=== PATIENT | male | born 1995 | race Caucasian/White ===

== ENCOUNTER 2019-05-11 05:48 | Outpatient (CLI) | payer BC ==
[~2019-05-11] VITALS: Ht 182.9 cm; Wt 104.3 kg
[2019-05-11] MEDS ORDERED: RANI-515 PO (13:07)
== END 2019-05-11 13:08 | disposition home or self-care (01) ==
LOC: PREOP 05:48
PROVIDERS: ATTEND Otolaryngology Otolaryngology/Facial Plastic Surgery
DX: Z01.818 Encounter for other preprocedural examination (principal)

== ENCOUNTER 2019-05-21 07:44 | Day surgery (SDC) | payer BC ==
[2019-05-21] VITALS (15 sets, daily range): BP systolic 105–149; BP diastolic 63–104
[~2019-05-21] VITALS: Ht 182.9 cm; Wt 105.2 kg
[~2019-05-21 07:44] MED LIST: RANI-515 PO
--- OUTSIDE RECORDS SUMMARY | 2019-05-21 08:04 | XMS REPORT | Encounter Summary ---
Author Author [facility] Organization [facility] Address Unknown Phone Unavailable Care Team Providers Care National Coverage Specialist Name Role Phone Ventura Gibbs PCP Reason for Visit * Reason Comments General Question Encounter Details Care Team Description [place] [address] [address] Med Office Bld [address]PE [address] [place], [place] [address] General Question 04/13/2019 Telephone [place] [employer] [facility] [address] [place], [place] [address] Social History Date Tobacco Use Types Packs/Day Years Used Never Smoker Smokeless Tobacco: Never Used Drinks/Week oz/Week Comments Alcohol Use social Yes Alcohol Habits Answer Date Recorded How often do you have a drink containing alcohol? Never 12/24/2018 How many drinks containing alcohol do you have on Not asked a typical day when you are drinking? How often do you have six or more drinks on one Not asked occasion? Sex Assigned at Date Recorded Not on file Industry Job Start Date Occupation Not on file Not on file Not on file Travel End Travel History Travel Start No recent travel history available. documented as of this encounter Functional Status Date of Assessment Functional Status Response 04/01/2019 Does the patient have a hearing impairment: No 04/01/2019 Does the patient have a visual impairment: No 04/01/2019 Does the patient have impaired ambulation: Yes 04/01/2019 Does the patient have an activity of daily living No (ADL) impairment: 04/01/2019 Does the patient have an instrumental activity of No daily living (IADL) impairment: Date of Assessment Cognitive Status Response 04/01/2019 Does the patient have a cognitive impairment: No documented as of this encounter Miscellaneous Notes * Telephone Encounter - Jesus Chance - 04/13/2019 12:41 PM CDT Returned call to Sanford. He asked how much he could lift transferring weight from rack to bench when doing upper extremity exercise/workouts. Per Chi Aquino PA-C it should be a significantly lower weight storey he is typically lifting. Chalo garcia also indicated no lower extremity exercise until cleared by Luz Maria. Also be seated for exercises so not load bearing. Sanford indicated he has been using 25-30 pound dumbbells transferring them to sea mell bench to do upper extremity exercise. He did report before surgery he was be nching 275#. So I indicated as long as he avoids long carrying of 25-30 pound du mbbells he should be fine to transfer them to seated weight bench to do his uppe r extremity exercises. No lower extremity until cleared by Luz Maria. Pt agreed and all questions answered. documented in this encounter Plan of Treatment Not on filedocumented as of this encounter Visit Diagnoses Not on filedocumented in this encounter
--- OUTSIDE RECORDS SUMMARY | 2019-05-21 08:04 | XMS REPORT | Encounter Summary ---
Author Author [facility] Organization [facility] Address Unknown Phone Unavailable Care Team Providers Care Clarifier Operator Name Role Phone ParasVentura mccauley PCP Reason for Visit * Reason Comments Post-op Encounter Details Care Team Description Date Type Department Chi Aquino PA-C [address] [facility] [address] [address] [place] [address] [phone] S/P hip arthroscopy (Primary Dx) 04/29/2019 Office Visit [facility] [address] [employer] [place], [place] [id number] Social History Date Tobacco Use Types Packs/Day [...] history available. documented as of this encounter Last Filed Vital Signs Reading Time Taken Comments Vital Sign 122/83 04/29/2019 11:13 AM CDT Blood Pressure 62 04/29/2019 11:13 AM CDT Pulse - - Temperature 16 04/29/2019 11:13 AM CDT Respiratory Rate 99% 04/29/2019 11:13 AM CDT Oxygen Saturation - - Inhaled Oxygen Concentration 104.3 kg (230 lb) 04/29/2019 11:13 AM CDT Weight 182.9 cm (6') 04/29/2019 11:13 AM CDT Height 31.19 04/29/2019 11:13 AM CDT Body Mass Index documented in this encounter Functional Status Date of Assessment [...] impairment: No documented as of this encounter Patient Instructions * Patient Instructions* Cate Young RN - 04/29/2019 11:00 AM CDT MD Chi Fox PA-C [facility] | | [address] [place] [address] 200 | [place] [address] Cate Young RN | Clinical Nurse Coordinator Jamison Valadez ATC | Clinical Clear Coat Sprayer documented in this encounter Progress Notes * Chi Aquino PA-C - 04/29/2019 11:00 AM CDT CC: Status post Right hip arthroscopy and labral repair 03/17/19 HPI: Sanford Rodriguezroxierocio presents today for routine 6 week post-operative fo llow up of his hip arthroscopy. He is doing well with minimal complaints. He f eels 80% improved and rates his pain a 1/10. [facility] He [facility] school [facility]. No issues since last being seen. No falls. He has been using naproxen. Physical Exam: Right Hip Exam: Incisions healed. Skin intact. No erythema or induration. Normal gait ROM: Flexion: 90 Flexion ER: 30 Flexion IR: 20 Special tests: KARAN: negative FADIR: negative SCOUR: negative. Stintchfiel d testing is negative. Strength is good. Sensation is intact to light touch. Impression: 23 y.o. male 6-weeks status post the above surgery doing well. Plan: He may progress through the PT protocol as planned (standard hip arthroscopy). We discussed postoperative precautions moving forward. Had a long discussion in regards to restrictions. I will have him see in 6 weeks. All of his q uestions were answered today. He was comfortable with the plan at the end of e visit. BP 122/83 (BP Source: Arm, Left Upper, Patient Position: Sitting) | Pulse 62 | Resp 16 | Ht 182.9 cm (72") | Wt 104.3 kg (230 lb) | SpO2 99% | BMI 31.19 k g/m No orders of the defined types were placed in this encounter. Current Medications: amino acids (BCAA PO) Take 1 tablet by mouth daily. APPLE CIDER VINEGAR PO Take 1 tablet by mouth daily. biotin 1 mg cap Take 1 capsule by mouth daily. flaxseed oil (OMEGA 3 PO) Take 1 capsule by mouth daily. levocarnitine (L-CARNITINE PO) Take 1 capsule by mouth daily. loratadine (CLARITIN) 10 mg tablet Take 10 mg by mouth every morning. meloxicam (MOBIC) 7.5 mg tablet Take 7.5 mg by mouth daily as needed. Multivitamins with Fluoride (MULTI-VITAMIN PO) Take 1 tablet by mouth daily. naproxen (NAPROSYN) 500 mg tablet Take one tablet by mouth twice daily with meals. Take for 4 weeks after surgery. Do not start until after surgery has bee n completed. ranitidine(+) (ZANTAC) 150 mg tablet Take 150 mg by mouth daily. tretinoin (RETIN-A) 0.1 % topical cream Apply topically to affected area da frederick. No Known Allergies documented in this encounter Plan of Treatment Not on filedocumented as of this encounter Visit Diagnoses Diagnosis S/P hip arthroscopy - Primary documented in this encounter
--- OUTSIDE RECORDS SUMMARY | 2019-05-21 08:04 | XMS REPORT | Encounter Summary ---
Author Author [facility] Organization [facility] Address Unknown Phone Unavailable Care Team Providers Care Imaging Manager Name Role Phone Ventura Gibbs PCP Reason for Visit * Auth/Cert Referred By Contact Referred To Contact Status Reason Specialty Diagnoses / Procedures Diagnoses Femoroacetabular impingement of right hip Acetabular labrum tear, right, subsequent encounter Femoroacetabular impingement of right hip [M25.851] Acetabular labrum tear, right, subsequent encounter [S73.191D] P rocedures AL ARTHROSCOPY HIP W/FEMOROPLASTY AL ARTHROSCOPY HIP W/LABRAL REPAIR ARTHROSCOPY HIP, FEMOROPLASTY ARTHROSCOPY HIP WITH LABRAL REPAIR - SURGICAL Encounter Details Care Team Description [place] [address] [facility] [address] [place] [address] [phone] 03/17/2019 [facility] [address] [facility] [address] [place] [address] Social History Date Tobacco Use Types Packs/Day [...] Status Date of Assessment Functional Status Response 12/24/2018 Does the patient have a hearing impairment: No 12/24/2018 Does the patient have a visual impairment: No 12/24/2018 Does the patient have impaired ambulation: No 12/24/2018 Does the patient have an activity of daily living No (ADL) impairment: 12/24/2018 Does the patient have an instrumental activity of No daily living (IADL) impairment: Date of Assessment Cognitive Status Response 12/24/2018 Does the patient have a cognitive impairment: No documented as of this encounter Medications at Time of Discharge Start Date End Date Medication Sig Dispensed Refills amino acids (BCAA PO) Take 1 tablet 0 by mouth daily. APPLE CIDER VINEGAR PO Take 1 tablet 0 by mouth daily. biotin 1 mg cap Take 1 0 capsule by mouth daily. flaxseed oil (OMEGA 3 PO) Take 1 0 capsule by mouth daily. levocarnitine Take 1 0 (L-CARNITINE PO) capsule by mouth daily. loratadine (CLARITIN) 10 Take 10 mg by 0 mg tablet mouth every morning. meloxicam (MOBIC) 7.5 mg Take 7.5 mg 0 tablet by mouth daily as needed. Multivitamins with Take 1 tablet 0 Fluoride (MULTI-VITAMIN by mouth PO) daily. 03/17/2019 naproxen (NAPROSYN) 500 Take one 60 tablet 3 mg tablet tablet by mouth twice daily with meals. Take for 4 weeks after surgery. Do not start until after surgery has been completed. ranitidine(+) (ZANTAC) Take 150 mg 0 150 mg tablet by mouth daily. 01/22/2019 tretinoin (RETIN-A) 0.1 % Apply 0 topical cream topically to affected area daily. 03/17/2019 04/01/2019 diazePAM (VALIUM) 5 mg Take one 40 tablet 0 tabletIndications: muscle tablet by spasm mouth every 6 hours as needed for Anxiety. Indications: muscle spasm 03/17/2019 04/01/2019 oxyCODONE/acetaminophen Take one 60 tablet 0 (PERCOCET; ENDOCET; tablet to two ROXICET) 5/325 mg tablet tablets by mouth every 4 hours as needed for Pain Max 8 tabs/day. Do not take prior to surgery. documented as of this encounter Plan of Treatment Date/Time Name Type Priority Associated Diagnoses 03/17/2019 12:33 PM CDT POC ANES US GUIDED NERVE Imaging Routine BLOCK documented as of this encounter Visit Diagnoses Not on filedocumented in this encounter
--- OUTSIDE RECORDS SUMMARY | 2019-05-21 08:04 | XMS REPORT | Clinical Summary ---
Author Author [facility] Organization [facility] Address Unknown Phone Unavailable Care Team Providers Care City Distribution Clerk Name Role Phone Ventura Gibbs DO PCP Source Comments Some departments are not documenting in the electronic medical record. If you d o not see the information that you expected, contact Release of Information in [facility] [employer] Information Management department at [phone] for further assistan ce in locating additional records.[facility] Allergies No Known Allergies Medications End Date Status Medication Sig Dispensed Refills Start Date Active Multivitamins with Take 1 tablet 0 Fluoride (MULTI-VITAMIN by mouth PO) daily. Active flaxseed oil (OMEGA 3 PO) Take 1 0 capsule by mouth daily. Active biotin 1 mg cap Take 1 0 capsule by mouth daily. Active APPLE CIDER VINEGAR PO Take 1 tablet 0 by mouth daily. Active amino acids (BCAA PO) Take 1 tablet 0 by mouth daily. Active levocarnitine Take 1 0 (L-CARNITINE PO) capsule by mouth daily. Active ranitidine(+) (ZANTAC) Take 150 mg 0 150 mg tablet by mouth daily. Active naproxen (NAPROSYN) 500 Take one 60 tablet 3 mg tablet tablet by 9 mouth twice daily with meals. Take for 4 weeks after surgery. Do not start until after surgery has been completed. Active loratadine (CLARITIN) 10 Take 10 mg by 0 mg tablet mouth every morning. Active tretinoin (RETIN-A) 0.1 % Apply 0 topical cream topically to 9 affected area daily. Active meloxicam (MOBIC) 7.5 mg Take 7.5 mg 0 tablet by mouth daily as needed. Active Problems Problem Noted Date S/P hip arthroscopy 04/29/2019 Encounters Care Team Description Date Type Specialty Delano Loera MD Insurance Concerns 05/15/2019 Telephone Sports Medicine Chi Aquino PA-C S/P hip arthroscopy (Primary Dx) 04/29/2019 Office Visit Sports Medicine Delano Loera MD General Question 04/13/2019 Telephone Sports Medicine Delano Loera MD Acetabular labrum tear, right, subsequent encounter (Primary Dx); Femoroacetabular impingement of right hip; S/P hip arthroscopy 04/01/2019 Office Visit Sports Delano Cardenas MD 03/18/2019 Documentation Sports Medicine Roge Flaherty MD 03/17/2019 Hospital Radiology Encounter Delano Loera MD ARTHROSCOPY HIP, FEMOROPLASTY 03/17/2019 Surgery Roge Kincaid MD 03/17/2019 Anesthesia Event Delano Loera MD Femoroacetabular impingement of right hip 03/17/2019 Hospital Encounter Delano Loera MD Surgery 02/24/2019 Telephone Sports Medicine from Last 3 Months Family History Medical History Relation Name Comments Stroke Father Cancer Maternal Grandmother Relation Name Status Comments Father Maternal Grandmother Social History Date Tobacco Use Types Packs/Day [...] Travel Start No recent travel history available. Last Filed Vital Signs Reading Time Taken Comments Vital Sign 122/83 04/29/2019 11:13 AM CDT Blood Pressure 62 04/29/2019 11:13 AM CDT Pulse 36.7 C (98.1 F) 03/17/2019 2:00 PM CDT Temperature 16 04/29/2019 11:13 AM CDT Respiratory Rate 99% 04/29/2019 11:13 AM CDT Oxygen Saturation - - Inhaled Oxygen Concentration 104.3 kg (230 lb) 04/29/2019 11:13 AM CDT Weight 182.9 cm (6') 04/29/2019 11:13 AM CDT Height 31.19 04/29/2019 11:13 AM CDT Body Mass Index Plan of Treatment Health Maintenance Due Date Last Done Comments PHYSICAL (COMPREHENSIVE) 2002 EXAM HIV SCREENING 2010 DTAP/TDAP VACCINES ( - 2013 Tdap) INFLUENZA VACCINE 08/04/2019 Implants Device Identifier Shelf Expiration Date Model / Serial / Lot Implanted Type Area Manufactur er 07/08/2020 [id number] / N/A / [id number] Sealy - Sn/A Right: Hip UNIDENTIFI Implanted: Qty: 1 on 03/17/2019 by Delano Snell MD at [facility] 06/22/2020 [id number] / N/A / [id number] Sealy - Sn/A Right: Hip UNIDENTIFI Implanted: Qty: 3 on 03/17/2019 by Delano Snell MD at [facility] Procedures Comments Procedure Name Priority Date/Time Associated Diagnosis ANESTHESIA PERIPHERAL Routine 03/17/2019 NERVE BLOCK 1:01 PM CDT FLUORO MOBILE IN OR Routine 03/17/2019 12:10 PM CDT ARTHROSCOPY HIP WITH 03/17/2019 Femoroacetabular LABRAL REPAIR - SURGICAL 10:41 AM CDT impingement of right hip Acetabular labrum tear, right, subsequent encounter ARTHROSCOPY HIP WITH 03/17/2019 Femoroacetabular FEMOROPLASTY 10:41 AM CDT impingement of right hip Acetabular labrum tear, right, subsequent encounter TELEMETRY STRIPS-SCAN 03/17/2019 12:00 AM CDT from Last 3 Months Results * PERIPHERAL NERVE BLOCK (03/17/2019 1:01 PM CDT) Narrative Performed At Barry Moran DO 03/17/20191:02 PM Anesthesia Procedure: Peripheral Nerve Block PERIPHERAL NERVE BLOCK Date/Time: 03/17/2019 1:02 PM Patient location: post-op Reason for block: at surgeon's request and post-op pain management Preprocedure checklist performed: 2 patient identifiers, risks & benefits discussed, patient evaluated, timeout performed, consent obtained, patient being monitored and sterile drape Sterile technique: - Proper hand washing - Cap, mask - Sterile gloves - Skin prep for antisepsis Peripheral Nerve Block Procedure Patient position: supine Prep: ChloraPrep Monitoring: BP, EKG and continuous pulse ox Block type: fascia iliaca Laterality: right Injection technique: single-shot Procedures: ultrasound guided Ultrasound image captured Local infiltration: lidocaine Needle/cathether: Needle type: Stimuplex Needle gauge: 22 G; Needle length: 4 in Needle location: anatomical landmarks and ultrasound guidance Procedure Outcome Injection assessment: negative aspiration for heme, no paresthesia on injection, incremental injection and local visualized surrounding nerve on ultrasound Observations: adequate block, patient sedated but conversant throughout block, patient tolerated the procedure well with no immediate complications and comfortable throughout block Additional notes: 30ml 0.5% ropivacaine injected under direct U/S visualization. Refer to nursing documentation for vitals and monitoring data during procedure. Performed by: Barry Moran DO Authorized by: Roge Flaherty MD * FLUORO MOBILE IN OR (03/17/2019 12:10 PM CDT) Specimen Narrative Performed At This order has been auto finalized and does not contain a result. TAHIR MIGUEL ÁNGEL Performing Organization Address [facility] Phone Number [facility] * TELEMETRY STRIPS-SCAN (03/17/2019 12:00 AM CDT) Narrative Performed At Ordered by an unspecified provider. from Last 3 Months Insurance Type Payer Benefit Subscriber ID Effective Phone Address Plan / Dates Group PPO BCBS [id number] [employer] xxxxxxxxxxxx [id number] OUT OF resent STATE Advance Directives Patient Awnings Mechanic Explanation Type Date Recorded Advance Directive/DPOA
--- OUTSIDE RECORDS SUMMARY | 2019-05-21 08:04 | XMS REPORT | Encounter Summary ---
Author Author [facility] Organization [facility] Address Unknown Phone Unavailable Care Team Providers Care Briquetting Machine Operator Name Role Phone PrestonVentura roberts PCP Reason for Visit * Reason Comments Insurance Concerns Encounter Details Care Team Description Date [place] [address] [facility] Med Office d [address] [place] [address] [phone] Insurance Concerns 05/15/2019 Telephone [facility] [address] [place] [address] Social History Date Tobacco Use Types Packs/Day [...] encounter Miscellaneous Notes * Telephone Encounter - Tonya Brambila Athletic Trainer Certified - 05/15/2019 3:18 PM CDT Patient's mother called concerned as patient is running out of physical therapy visits per insurance plan. Mother requested appeal for more visits be sent to [facility] at F: [phone]. Letter written and faxed as requested. 19 3:23 PM CDT documented in this encounter Plan of Treatment Not on filedocumented as of this encounter Visit Diagnoses Not on filedocumented in this encounter
--- OUTSIDE RECORDS SUMMARY | 2019-05-21 08:04 | XMS REPORT | Encounter Summary ---
Author Author [facility] Organization [facility] Address Unknown Phone Unavailable Care Team Providers Care Hand Sole Sewer Name Role Phone Ventura Gibbs PCP Reason for Visit * Reason Comments Post Operative Visit right hip Encounter Details Care Team Description Date [place] [address] [address] [facility] [address] [employer] Med Office Bld [address]PPE [address] [place] [address] [phone] Acetabular labrum tear, right, subsequent encounter (Primary Dx); Femoroacetabular impingement of right hip; S/P hip arthroscopy 04/01/2019 Office Visit [facility] [address] [place] [address] Social History Date Tobacco Use Types Packs/Day [...] Signs Reading Time Taken Comments Vital Sign 146/79 04/01/2019 10:29 AM CDT Blood Pressure 70 04/01/2019 10:29 AM CDT Pulse - - Temperature - - Respiratory Rate 95% 04/01/2019 10:29 AM CDT Oxygen Saturation - - Inhaled Oxygen Concentration 104.3 kg (230 lb) 04/01/2019 10:29 AM CDT Weight 182.9 cm (6') 04/01/2019 10:29 AM CDT Height 31.19 04/01/2019 10:29 AM CDT Body Mass Index documented in [...] this encounter Patient Instructions * Patient Instructions* Tonya Brambila Merchandising Director Certified - 04/01/2019 10:20 AM CDT Please do not hesitate to contact my office with any questions. Delano Loera MD | Orthopedic Surgeon, Sports Medicine Chi Aquino PA-C | Physician First Aid Nurse [facility] | | [address] [address] | [place] [address] Tonya Brambila MS, LAT, ATC | Clinical Merchandising Director Thank you for supporting our practice! Your feedback helps us deliver the highes t quality care. Review us at: [email or web address] 11:23 AM CDT documented in this encounter Progress Notes * Delano Loera MD - 04/01/2019 10:20 AM CDT CC: Status post Right hip arthroscopy 03/17/2019 HPI: Sanford Crook presents today for routine 2 week post-operative fo llow up of his hip arthroscopy. He is doing well with minimal complaints. He denies fevers or chills. He denies numbness or tingling. He denies wound probl ems. Physical Exam: Right Hip Exam: Incisions clean and dry. Skin intact. No erythema or induration. Imaging: I reviewed the intraoperative arthroscopy images with the patient marimar bishop. I provided him with a copy today. Impression: 23 y.o. male 2-weeks status post the above surgery doing well. Plan: He may progress through the PT protocol as planned. We discussed postoperative precautions moving forward. He was provided with refill medications as listed b andrea. I will see him back in 4 weeks. All of his questions were answered today . He was comfortable with the plan at the end of the visit. BP 146/79 (BP Source: Arm, Right Upper, Patient Position: Sitting) | Pulse 70 | Ht 182.9 cm (72") | Wt 104.3 kg (230 lb) | SpO2 95% | BMI 31.19 kg/m No orders of the defined types were placed in this encounter. Current Medications: ? amino acids (BCAA PO) Take 1 tablet by mouth daily. ? APPLE CIDER VINEGAR PO Take 1 tablet by mouth daily. ? biotin 1 mg cap Take 1 capsule by mouth daily. ? flaxseed oil (OMEGA 3 PO) Take 1 capsule by mouth daily. ? levocarnitine (L-CARNITINE PO) Take 1 capsule by mouth daily. ? loratadine (CLARITIN) 10 mg tablet Take 10 mg by mouth every morning. ? meloxicam (MOBIC) 7.5 mg tablet Take 7.5 mg by mouth daily as needed. ? Multivitamins with Fluoride (MULTI-VITAMIN PO) Take 1 tablet by mouth daily. ? naproxen (NAPROSYN) 500 mg tablet Take one tablet by mouth twice daily with me als. Take for 4 weeks after surgery. Do not start until after surgery has been completed. ? ranitidine(+) (ZANTAC) 150 mg tablet Take 150 mg by mouth daily. ? tretinoin (RETIN-A) 0.1 % topical cream Apply topically to affected area macey y. No Known Allergies This note may have been partially created using [employer], a voice recognition [employer] program. Please feel free to contact my office for clarification of any do cumentation. ATTESTATION I personally performed the E/M including history, physical exam, and MDM. Staff name: Delano Loera MD Date: 04/01/2019 Delano Loera MD Please send a copy of office notes to the primary care physician and referring p lizzviders. documented in this encounter Plan of Treatment Not on filedocumented as of this encounter Visit Diagnoses Diagnosis Acetabular labrum tear, right, subsequent encounter - Primary Femoroacetabular impingement of right hip Enthesopathy of hip region S/P hip arthroscopy documented in this encounter
--- OUTSIDE RECORDS SUMMARY | 2019-05-21 08:04 | XMS REPORT | Encounter Summary ---
Author Author [facility] Address Unknown Phone Unavailable Care Team Providers Care School Aide Name Role Phone Ventura Gibbs PCP Encounter Details Care Team Description Date [place] [address] Med Office Bld GIUSEPPE [address] [place] [address] [phone] 03/18/2019 Documentation [facility] [address] [place] [address] Social History Date Tobacco Use Types Packs/Day [...] impairment: No documented as of this encounter Progress Notes * Tonya Brambila Athletic Trainer Certified - 03/18/2019 2:48 PM CDT Operative report, PT orders and protocol sent to Marty Nava DPT (F: ) 19 2:49 PM CDT documented in this encounter Plan of Treatment Not on filedocumented as of this encounter Visit Diagnoses Not on filedocumented in this encounter
--- OUTSIDE RECORDS SUMMARY | 2019-05-21 08:05 | XMS REPORT | Encounter Summary ---
Author Author [facility] Organization [facility] Address Unknown Phone Unavailable Care Team Providers Care [employer]a Integration Architect Name Role Phone PrestonarmandoVentura DO PCP Reason for Referral * Consult, Test & Treat (Routine) Referred By Contact Referred To Contact Status Reason Specialty Diagnoses / [place] [address] [facility] [address] [address] [place] [address] Closed Specialty Services Diagnoses Required Acetabular labrum tear, right, subsequent encounter Femoroacetabular impingement of right hip Reason for Visit * Reason Comments Surgery Encounter Details Care Team Description Date [place] [address] [facility] [address] [address] [place], [place] [id number] Surgery 02/24/2019 Telephone [facility] [id number] [address] [place] [address] Social History Date Tobacco Use Types Packs/Day Years Used Never Smoker Smokeless Tobacco: Never Used Drinks/Week oz/Week Comments Alcohol Use No Alcohol Habits Answer Date Recorded How often [...] encounter Miscellaneous Notes * Telephone Encounter - Kristen Linder RN - 02/24/2019 12:11 PM CDT Patient called to schedule surgery. Date of surgery determined based on availab ility of both patient and Delano Loera MD. The patient was scheduled for Right hip scope II on 03.17.19 at [facility]. Patient instructed to schedule POV for 14-15 days later with Delano Loera MD. Post-operative physical therapy: Patient plans to complete physical therapy at [facility] - PT WILL CALL . He will be called with arrival date and time for day of surgery once scheduling is completed. Questions answered and reassurance given. Instructed to call for further questions or problems. Verbalized understanding of the in structions as given. Dr. Loera and patient have agreed to schedule procedure as extended recovery af ter surgery: No Vitals: BP: 126/85 Pulse: 72 Resp: 16 SpO2: 98% Weight: 104.3 kg (230 lb) Height: 182.9 cm (72") Body mass index is 31.19 kg/m. Deep Vein Thrombosis (DVT) Risk Assessment *Use for all lower extremity procedures 1 point for each applicable item: Total for section: 0 2 points for each applicable item: Surgery > 45 minutes Total for section: 2 3 points for each applicable item: Total for section: 0 5 points for each applicable item: Total for section: 0 Total Risk Factor Score: 2 DVT Risk Assessment Score Points Risk Recommendation 0 Very low VTE risk Early and frequent ambulation 1-2 Low VTE risk Mechanical prophylaxis 3-4 Moderate VTE risk and low bleed risk Pharmacologic prophylaxis >/=5 High VTE risk and low bleed risk Mechanical AND pharmacologic prophylaxis *DVT risk assessment scoring has been adapted from the Caprini Risk Assessment. This risk stratification score is based on a validated DVT prophylaxis screening tool, Thrombotic Risk Assessment: A Hybrid Approach. 2005. http://www.venousdi sease.com/Publications/. This is the recommended screening tool per the [employer] and the [employer] myrtle documented in this encounter Plan of Treatment Order Schedule Name Type Priority Associated Diagnoses Ordered: 02/24/2019 AMB REFERRAL TO PHYSICAL Outpatient Routine Acetabular labrum tear, OR OCCUPATIONAL THERAPY Referral right, subsequent encounter Femoroacetabular impingement of right hip documented as of this encounter Visit Diagnoses Diagnosis Acetabular labrum tear, right, subsequent encounter - Primary Femoroacetabular impingement of right hip Enthesopathy of hip region documented in this encounter
--- OUTSIDE RECORDS SUMMARY | 2019-05-21 08:05 | XMS REPORT | Encounter Summary ---
Author Author [facility] Organization [facility] Address Unknown Phone Unavailable Care Team Providers Care Residential Glazier Name Role Phone Ventura Gibbs DO PCP Encounter Details Care Team Description Date Type Department 02/16/2019 [facility] [address] [place] [id number] Social History Date Tobacco Use Types Packs/Day [...] cream topically to affected area daily. 03/17/2019 cetirizine (ZYRTEC) 10 mg Take 10 mg by 0 tablet mouth every morning. 03/17/2019 04/01/2019 diazePAM (VALIUM) 5 mg Take one 40 tablet 0 tabletIndications: muscle tablet by spasm mouth every 6 hours as needed for Anxiety. Indications: muscle spasm 03/17/2019 ibuprofen (ADVIL) 200 mg Take 200 mg 0 tablet by mouth every 6 hours as needed for Pain. Take with food. 03/17/2019 04/01/2019 oxyCODONE/acetaminophen Take one 60 tablet 0 (PERCOCET; ENDOCET; tablet to two ROXICET) 5/325 mg tablet tablets by mouth every 4 hours as needed for Pain Max 8 tabs/day. Do not take prior to surgery. documented as of this encounter Plan of Treatment Not on filedocumented as of this encounter Procedures Comments Procedure Name Priority Date/Time Associated Diagnosis MRI PELVIS EXTERNAL Routine 02/16/2019 IMAGING 12:00 AM CDT documented in this encounter Results * MRI PELVIS EXTERNAL IMAGING (02/16/2019 12:00 AM CDT) Specimen Narrative Performed At This order has been auto finalized and does not contain a result. documented in this encounter Visit Diagnoses Not on filedocumented in this encounter
--- OUTSIDE RECORDS SUMMARY | 2019-05-21 08:05 | XMS REPORT | Encounter Summary ---
Author Author [facility] Organization [facility] Address Unknown Phone Unavailable Care Team Providers Care Trailer Sections Assembler Name Role Phone Ventura Gibbs PCP Reason for Visit * Auth/Cert Referred By Contact Referred To Contact Status Reason Specialty Diagnoses / Procedures Diagnoses Femoroacetabular impingement of right hip Acetabular labrum tear, right, subsequent encounter Femoroacetabular impingement of right hip [M25.851] Acetabular labrum tear, right, subsequent encounter [S73.191D] P rocedures [place] ARTHROSCOPY HIP W/FEMOROPLASTY [place] ARTHROSCOPY HIP W/LABRAL REPAIR ARTHROSCOPY HIP, FEMOROPLASTY ARTHROSCOPY HIP WITH LABRAL REPAIR - SURGICAL Encounter Details Care Team Description [place] [address] [facility] Med Office [address] [place] [address] [phone] ARTHROSCOPY HIP, FEMOROPLASTY 03/17/2019 Surgery [facility] [place] [address] [place] [address] Social History Date Tobacco Use Types Packs/Day [...] Signs Reading Time Taken Comments Vital Sign 137/78 03/17/2019 2:00 PM CDT Blood Pressure 72 03/17/2019 2:00 PM CDT Pulse 36.7 C (98.1 F) 03/17/2019 2:00 PM CDT Temperature - - Respiratory Rate 99% 03/17/2019 2:00 PM CDT Oxygen Saturation - - Inhaled Oxygen Concentration 106 kg (233 lb 9.6 oz) 03/17/2019 9:25 AM CDT Weight 182.9 cm (6') 03/17/2019 9:25 AM CDT Height 31.68 03/17/2019 9:25 AM CDT Body Mass Index documented in [...] impairment: No documented as of this encounter Discharge Instructions * Patient Instructions* Lazaro Bowling RN - 03/17/2019 12:56 PM CDT Discharge Instructions: After Your Surgery Youve just had surgery. During surgery, you were given medicine called anesth esia to keep you relaxed and free of pain. After surgery, you may have some pain or nausea. This is common. Here are some tips for feeling better and getting we ll after surgery. Stay on schedule with your medicine. Going home Your healthcare provider will show you how to take care of yourself when you go home. He or she will also answer your questions. Have an adult family member or friend drive you home. For the first 24 hours after your surgery: Do not drive or use heavy equipment. Do not make important decisions or sign legal papers. Do not drink alcohol. Have someone stay with you, if needed. He or she can watch for problems and h elp keep you safe. Be sure to go to all follow-up visits with your healthcare provider. And rest af ter your surgery for as long as your healthcare provider tells you to. Coping with pain If you have pain after surgery, pain medicine will help you feel better. Take it as told, before pain becomes severe. Also, ask your healthcare provider or phar macist about other ways to control pain. This might be with heat, ice, or relaxa tion. And follow any other instructions your surgeon or nurse gives you. Tips for taking pain medicine To get the best relief possible, remember these points: Pain medicines can upset your stomach. Taking them with a little food may hel p. Most pain relievers taken by mouth need at least 20 to 30 minutes to start to work. Taking medicine on a schedule can help you remember to take it. Try to time y our medicine so that you can take it before starting an activity. This might be before you get dressed, go for a walk, or sit down for dinner. Constipation is a common side effect of pain medicines. Call your healthcare provider before taking any medicines such as laxatives or stool softeners to hel p ease constipation. Also ask if you should skip any foods. Drinkinglots of fl uids andeating foodssuch as fruits and vegetables that are high in fiber can also help. Remember, do not take laxatives unless your surgeon has prescribed t hem. Drinking alcohol and taking pain medicine can cause dizziness and slow your b reathing. It can even be deadly. Do not drink alcohol while taking pain medicine . Pain medicine can make you react more slowly to things. Do not drive or run m achinery while taking pain medicine. Your healthcare providermay tell you to take acetaminophen to help ease your p ain. Ask him or her how much you are supposed to take each day. Acetaminophen or other pain relievers may interact with your prescription medicines or other ove q-ihe-skuxjkw (OTC) medicines. Some prescription medicines have acetaminophen an d other ingredients.Using both prescription and OTC acetaminophenfor painc an cause you to overdose. Readthe labels on your OTC medicineswith care. Thi s will help youto clearly know the list of ingredients, how much to take, and anywarnings. It may also help you not take too muchacetaminophen.If you bender ve questions or do not understand the information, ask your pharmacist or health care provider to explain it to you before you take the OTC medicine. Managing nausea Some people have an upset stomach after surgery. This is often because of anesth esia, pain, or pain medicine, or the stress of surgery. These tips will help you handle nausea and eat healthy foods as you get better. If you were on a special food plan before surgery, ask your healthcare provider if you should follow it while you get better. These tips may help: Do not push yourself to eat. Your body will tell you when to eat and how much . Start off with clear liquids and soup. They are easier to digest. Next try semi-solid foods, such as mashed potatoes, applesauce, and gelatin, as you feel ready. Slowly move to solid foods. Dont eat fatty, rich, or spicy foods at first. Do not force yourself to have 3 large meals a day. Instead eat smaller amount s more often. Take pain medicines with a small amount of solid food, such as crackers or to ast, to avoid nausea. Call your surgeon if You still have pain an hour after taking medicine. The medicine may not be st josefina enough. You feel too sleepy, dizzy, or groggy. The medicine may be too strong. You have side effects like nausea, vomiting, or skin changes, such as rash, i tching, or hives. If you have obstructive sleep apnea You were given anesthesia medicine during surgery to keep you comfortable and fr ee of pain. After surgery, you may have more apnea spells because of this medici ne and other medicines you were given. The spells may last longer than usual. At home: Keep using the continuous positive airway pressure (CPAP) device when you sle ep. Unless your healthcare provider tells you not to, use it when you sleep, day or night. CPAP is a common device used to treat obstructive sleep apnea. Talk with your provider before taking any pain medicine, muscle relaxants, or sedatives. Your provider will tell you about the possible dangers of taking the se medicines. Date Last Reviewed: 10/04/201619993627-6817 [employer]. [address] [place] [address], [place], [place] [address]. All rights reserved. This information is not intended as a substitute for pro fessional medical care. Always follow your healthcare professional's instruction s. Understanding Peripheral Nerve Blocks (PNBs) Regional anesthesia is medicine that numbs a section of your body. Peripheral ne rve blocks (PNBs) are a type of regional anesthesia. To do the block, a healthca re provider injects numbing medicine into a certain nerve or bundle of nerves. T he area below the nerves is then numbed for a time. Why PNBs are done PNBs are most often used to prevent pain during surgery and for a time afterward . They can be used for your arms, hands, legs, or feet. They may also be used fo r your neck, face, or groin. PNBs provide pain relief that lasts longer than loc al anesthesia. They can also be used to numb smaller areas of the body than othe r types of regional anesthesia. How PNBs are done An IV (intravenous) line may be put into a vein in your arm or hand. This yessy e provides fluids and medicines. Medical staff closely watches your blood pressure, breathing, and heart rate during the procedure. You may be given medicine to help you relax and make you sleepy. The healthcare provider identifies the nerves to be numbed. He or she may do this with the help of ultrasound or nerve stimulation. The injection site is cho sen. The provider inserts a needle with the medicine (anesthetic) at the injection site. He or she injects the medicine. The targeted part of your body becomes numb within 10 to 30 minutes. The area stays numb throughout the procedure. After the procedure is done, the numbness slowly wears off over the next 6 to 30 hours, depending on the type of medicine used. Risks of PNBs Bruising at the injection site Nerve injury Reaction to the anesthetic Injury to the numbed area of the body Date Last Reviewed: 04/04/201619990188-7103 [employer]. [address] [place] [place] [address] 7. All rights reserved. This information is not intended as a substitute for pro fessional medical care. Always follow your healthcare professional's instruction s. Using Crutches For helpful videos on using crutches, visit: [email or web address].[employer]/félix cuellar Under Patient Materials, select Crutch Use Education Series. These instructions will help you get around while on crutches. Sitting down 1. Back up until you feel the chair with the back of your leg. Hold both crutche s in the hand on your affected side. 2. Grab the armrest or the side of the chair with your free hand. 3. Lower yourself onto the front of the chair, then slide back. 4. To get up,reverse the 3 steps. Tip: Find sturdy, high-seated chairs with arms. If you must use a chair that swi vels or has wheels, back it against something stable before you sit down. Getting into cars 1. Follow the first step above for sitting in a chair. Use the doorjamb or the d ashboard for support as you lower yourself. Watch your head. Dont hold on to the car door, or it may close on you. 2. With your hands, lift your affected leg into the car. Or use your unaffected leg to hook your affected leg behind the ankle and lift it in. Through doors To push a door open,stand sideways and push the door open with your body. To pull a door open, stand to the side. Get your balance and pull the door fu lly open with your hand. Plant the tip of the nearest crutch inside the door to act as a doorstop. Leave the crutch in place until youve walked through. Tip: Avoid revolving doors. Instead, use handicapped accessible entrances. Date Last Reviewed: 09/17/201519997416-9428 [facility], [address] [place] [address], [place] [address]. All rights res erved. This information is not intended as a substitute for professional medical care. Always follow your healthcare professional's instructions. This informati on has been modified by your health care provider with permission from the [facility]. * Pre-Anesthesia Patient Instructions* Domi Mckeon RN - 03/06/2019 12:57 PM CDT GENERAL INFORMATION Before you come to the hospital Make arrangements for a responsible adult to drive you home and stay with you for 24 hours following surgery. Bath/Shower Instructions Please refer to Pre-Surgery Shower Instruction sheet. Leave money, credit cards, jewelry, and any other valuables at home. The [facility] is not responsible for the loss or breakage of [employer] items. Remove nail portuguese from surgery site/extremity, makeup and all jewelry (inclu ding piercings) before coming to the hospital. The morning of your procedure: brush your teeth and tongue do not smoke do not shave the area where you will have surgery What to bring to the hospital ID/ Insurance Card Prosthetic Aides Teacher card Official documents for legal guardianship Copy of your Living Will, Advanced Directives, and/or Durable Power of Attorn ey Small bag with a few personal belongings Cases for glasses/hearing aids/contact lens (bring solutions for contacts) Dress in clean, loose, comfortable clothing Other personal items such as canes, walkers, and medications in original cont ainers if applicable CPAP or BiPAP Machine: If it is a [employer] System One machine plea se bring machine/humidifier and tubing/mask. All other brands, please bring tubi ng/mask only on the day of surgery. Eating or drinking before surgery Do not eat anything after 11:00 p.m. the day before your procedure (including gum, mints, candy, or chewing tobacco). Other instructions: You may have water until 8:15 a.m. day of surgery. Other instructions Notify your surgeon if: there is a possibility that you are you become ill with a cough, fever, sore throat, nausea, vomiting or flu-like symptoms you have any open wounds/sores that are red, painful, draining, or are new si nce you last saw the doctor you need to cancel your procedure Notify us at [place]: if you need to cancel your procedure if you are going to be late Arrival at the [facility] - Your surgery is scheduled on 03/17/19 at 10:15 a.m. Please arrive at 8:15 a.m. The [facility] is located at [address] [place] [address]. This is at the north west corner of [address] Use the main entrance of the hospital, at the east side of the building. Park ing is free. Check-in for surgery is inside the main entrance. * Pre-Anesthesia Medication Instructions* Domi Mckeon RN - 03/06/2019 12:58 PM CDT YOUR MEDICATIONS Current Medications Medication Directions amino acids (BCAA PO) Take 1 tablet by mouth daily. APPLE CIDER VINEGAR PO Take 1 tablet by mouth daily. biotin 1 mg cap Take 1 capsule by mouth daily. cetirizine (ZYRTEC) 10 mg tablet Take 10 mg by mouth every morning. flaxseed oil (OMEGA 3 PO) Take 1 capsule by mouth daily. ibuprofen (ADVIL) 200 mg tablet Take 200 mg by mouth every 6 hours as needed for Pain. Take with food. levocarnitine (L-CARNITINE PO) Take 1 capsule by mouth daily. Multivitamins with Fluoride (MULTI-VITAMIN PO) Take 1 tablet by mouth daily. ranitidine(+) (ZANTAC) 150 mg tablet Take 150 mg by mouth twice daily. Before surgery Stop these medicines 14 days before surgery: Multivitamin Flaxseed Oil Amino Acids Apple Cider Vinegar L-Carnitine Stop taking these medications 7 days prior to surgery: Ibuprofen DO NOT take the day of surgery: Biotin Morning of surgery On the morning of surgery, take ONLY these medicines with a sip (1-2 ounces) of water: Cetirzine Ranitidine Before going home from the hospital, please ask your doctor when you should re-s tart your medicines that were stopped before surgery. documented in this encounter Medications at Time of Discharge [...] to surgery. documented as of this encounter Progress Notes * Lazaro Bowling RN - 03/17/2019 2:45 PM CDT Patient has met discharge criteria for home. Discharge instructions have been re viewed with parent and patient. Parent verbalizes understanding of instructions for home.. Patient kept longer in Phase II would like to speak with Dr. Loera himself regarding findings from surgery. documented in this encounter H&P Notes * Delano Loera MD - 03/17/2019 9:25 AM CDT Orthopedic Sports Medicine History & Physical Note Date of Surgery: 03/17/2019 Chief Complaint: Right hip pain secondary to hip impingement and a labral tear Assessment/Plan - To the OR for Right hip arthroscopy with osteoplasty and labral repair vs rec onstruction. History of Present Illness: Sanford Crook is a 23 y.o. male prese nts today for surgical treatment of the above problem. He denies changes since I last saw him. He has failed conservative treatment options including: physic al therapy, NSAIDs, activity modification and injections. He has had symptoms f or > 3 months and presents today for surgical treatment. Review of Systems: A 10 point review of systems was performed and was negative except as per the HP I. Allergies: Patient has no known allergies. Current Medications: No current outpatient medications on file. Past Medical History: Medical History: Diagnosis Date Fracture Past Surgical History: Surgical History: Procedure Laterality Date WISDOM TEETH EXTRACTION Social History: Social History Tobacco Use Smoking Status Never Smoker Smokeless Tobacco Never Used Social History Substance and Sexual Activity Drug Use No Social History Substance and Sexual Activity Alcohol Use Yes Frequency: Never Comment: social Family History: Family History Problem Relation Age of Onset Stroke Father Cancer Maternal Grandmother Vital Signs: There were no vitals filed for this visit. Physical Exam: General: AAOx3, NAD ENT: Oropharynx/Nasopharynx clear Respiratory: Unlabored respirations Cardio: RRR GI: soft, NT, ND Skin: intact Musculoskeletal: Right hip exam unchanged. Neurologic: Right EHL/FHL/AT/Gastroc intact, SILT throughout foot Lab/Radiology/Other Diagnostic Tests: CBC w/Diff No results found for: WBC, HGB, HCT, PLTCT Basic Metabolic Profile No results found for: NA, K, CL, CO2, GAP, BUN, CR, GLU Coagulation Studies No results found for: PT, PTT, INR Delano Loera MD [phone] documented in this encounter Miscellaneous Notes * Operative Report (Direct Entry) - Delano Loera MD - 03/17/2019 11:15 AM CDT PATIENT NAME: Sanford Crook MR#: [id number] DATE OF OPERATION: 03/17/2019 SURGEON: Delano Loera MD TUBE WRAPPER: None PREOPERATIVE DIAGNOSIS: 1. Right hip labral tear. (M16.9) 2. Right hip Femoral acetabular impingement, cam type. (M76.891) POSTOPERATIVE DIAGNOSIS: Same. OPERATIVE PROCEDURE: 1. Right hip arthroscopy 2. Acetabuloplasty with labral repair (CPT 46956) 3. Femoroplasty. (CPT 63887) (59 Modifier) 4. Two views moblie fluoroscopy (CPT code 28932) Table: Nell ANESTHESIA: General endotracheal anesthesia. COMPLICATIONS: None. INDICATIONS FOR OPERATIVE PROCEDURE: The patient is a 23 y.o. male who present ed to clinic with Right sided hip pain. This has been previously worked up for f emoral acetabular impingement and labral tear. He had an MRI, which demonstrate d this. He had exhausted nonoperative treatment options including geophysical laboratory director apy, NSAIDs, activity modification and injections. We discussed treatment optio ns and he elected to proceed with surgical management. DESCRIPTION OF OPERATIVE PROCEDURE: The risks and benefits of the procedure were explained to the patient in clinic and informed consent was obtained. I identif ied the patient in the preoperative holding area today and marked the operative site. I had the opportunity to answer all of his questions today. He elected to proceed. SCDs and REJI hose were placed on the nonoperative lower extremity. The patient was taken back to the operative theater and placed in supine positio n. An anestheisa time out was perfomred. General endotracheal anesthesia was th en administered. A surgical time-out was performed identifying the correct patie nt, the correct side, correct site and confirmation administration antibiotics. Next, he was placed in traction on the traction table. his feet were padded with the foot pads. Prior to applying traction, his skin was marked with a permanen t marker identifying the bony landmarks including: the greater trochanter, the ASIS and the suspected location of the joint. His operative lower extremity was then prepped in normal sterile fashion and draped with a shower curtain drape. Macro and micro traction was then applied to his hip joint. The anterolateral po rtal was established with a spinal needle and a Nitinol wire. The position of th e wire was confirmed with fluoroscopy. Next, a stab incision was made with an 11 -blade and a capsule punch was inserted and then removed over the wire. Then, a red 4.0 mm cannula was inserted over the wire. The hip space was then entered w ithout difficulty. Next, the mid-anterior portal was established again with the spinal needle. This was done under direct visualization as well as aid of fluoro scopy. When the needle was in satisfactory position, the nitinol wire was again passed and a stab incision was made over the wire after the spinal needle was re moved. Next, the capsule punch was again inserted and removed followed by a seco nd Nell red 4mm cannula was passed over the nitinol wire. The obturator was r emoved and a [place] blade was inserted through the cannula. The metal cannula wa s then removed and the capsulotomy in the anterior and posterior plane was then performed. The [place] blade was removed. The Street red 4mm cannula was then p laced into the hip space through midanterior portal. The camera was moved to thi s portal. The [place] blade was then inserted through the anterolateral portal a nd the capsulotomy was completed through the anterior lateral portal. A sled w as inserted in to the anterolateral portal, followed by a switching stick. A S tryker blue 5mm metal cannula was placed over the switching stick, the switching stick was then removed. The camera was then returned to the anterolateral por albertina the the capsulotomy was then completed using the serfas ablation wand. I th en inserted a size large transport cannula over a switching stick into the worki ng midanterior portal. After a satisfactory capsulotomy was performed, diagnostic hip arthroscopy was then commenced. There was labral tear noted at the 11-3:00 position. Femoral he ad cartilage was normal and there was a wave sign in the articular cartilage of the acetabulum, there was significant delamination of the articular cartilage in this region of the acetabulum. The ligamentum teres was intact. There was not a loose body noted. Next, the soft tissue of the capsule was removed off the outer table of the acet abulum using an ablation wand. A small pincer lesion was encountered and approx imately 2 mm of bone was then resected from the 11 o'clock position to the 3 o'c lock position using a 5.5mm round chucho. He was noted to have a low hanging AIIS on the preoperative plain films causing subspine impingement. Therefore I did p erform a sub-spine decompression.The bony resection was guided by flouroscopic i mages. The bony resection was then complete. Next, (4) 2.4 mm holes were drill ed for the Street CinchLock knotless suture approximately 1 cm apart. Next, t he tape suture was placed in a loop fashion around the labrum incorporating acet abular cartilage. The two tails of the stitch were then passed through the Stry ker 2.4mm CinchLock knotless anchor. The anchor was then inserted into the bone and the labrum was secured and appropriately tensioned. This was repeated for each of the 4 knotless anchors. A good repair was obtained and stable to probin g. The traction was then let down at this point. There was a good gasket seal im mediately upon reduction of traction. I then turned my attention to the peripheral space. Based on preoperative imagin g, he was noted to have a CAM lesion. There was not significant denudation of th e femoral head upon entering the peripheral space. I then evaluated the lateral femoral circumflex vessels and noted they were intact and there was visible pul sation within the vessels. There was not cartilage injury proximally at the fem oral head neck junction secondary to the CAM. I then completed vertical limb o f the capsulotomy creating a T capsulotomy with the Serfas ablation wand to allo w better visualization of the CAM lesion.The tidemark for CAM resection was the set under direct visualization using the ablation wand. Then under fluoroscopic and direct visualization guidance, his CAM lesion was resected with a 5.5 mm ro und chucho, starting medially and working laterally. Multiple mobile orthogonal f luoroscopy images were taken of the hip and multiple degrees of flexion and inte rnal and external rotation. Final modified Mcghee view was then obtained, which de monstrated adequate resection of the CAM lesion. Cam resection depth was 4 mm. A dynamic exam was then performed with maximal hip flexion and adduction and the re was no impingement noted. The capsule was then closed with multiple number 2 force fiber stitches closing the vertical and horizontal limb of the T capsuloto my. This concluded the arthroscopic portion of the case. The skin was closed wit h 4-0 monocryl and dermabond in a buried fashion. Telfa, 4x4 and tegaderm were p laced as a dressing. AP and lateral of the right hip were obtained intraoperatively for diagnostic pu rposes. The patient was transferred to recovery room in stable condition postoperatively . All needle and sponge counts were correct at the end of the case. In the recovery room the patient had 5/5 strength in the EHL/FHL/AT/Gastroc inta ct. His sensation was intact to light touch throughout foot as well. TOTAL TRACTION TIME: 37 min ESTIMATED BLOOD LOSS: Less than 50 mL. Implants: Nell 2.4mm CinchLock knotless anchor x (4) SPECIMENS REMOVED: None. FINDINGS: As above. Postoperative DVT prophylaxis: mechanical with REJI hose and Naprosyn Heterotopic Ossification prophylaxis: Naprosyn x 4 weeks Physical Therapy protocol: Hip arthroscopy with labral repair Follow up: 10-14 days I performed this procedure without the involvement of a resident. documented in this encounter Plan of Treatment Date/Time Name Type Priority Associated Diagnoses 03/17/2019 12:33 PM CDT POC ANES US GUIDED NERVE Imaging Routine BLOCK Order Schedule Name Type Priority Associated Diagnoses ONE TIME for 1 Occurrences starting 03/17/2019 until 03/17/2019 POC ANES US GUIDED NERVE Imaging Routine BLOCK documented as of this encounter Procedures Comments Procedure Name Priority Date/Time Associated Diagnosis FLUORO MOBILE IN OR Routine 03/17/2019 12:10 PM CDT ARTHROSCOPY HIP WITH 03/17/2019 Femoroacetabular LABRAL REPAIR - SURGICAL 10:41 AM CDT impingement of right hip Acetabular labrum tear, right, subsequent encounter ARTHROSCOPY HIP WITH 03/17/2019 Femoroacetabular FEMOROPLASTY 10:41 AM CDT impingement of right hip Acetabular labrum tear, right, subsequent encounter TELEMETRY STRIPS-SCAN 03/17/2019 12:00 AM CDT documented in this encounter Results * FLUORO MOBILE IN OR (03/17/2019 12:10 PM CDT) Specimen Narrative Performed At This order has been auto finalized and does not contain a result. [facility]ANCACRIST[facility] DEL ROS[facility]IO Performing Organization Address City/State/Zipcode Phone Number [facility] * TELEMETRY STRIPS-SCAN (03/17/2019 12:00 AM CDT) Narrative Performed At Ordered by an unspecified provider. documented in this encounter Visit Diagnoses Diagnosis Femoroacetabular impingement of right hip Enthesopathy of hip region Acetabular labrum tear, right, subsequent encounter documented in this encounter Administered Medications Action Date Dose Rate Site Medication Order MAR Action 03/17/2019 9:51 AM CDT 1,000 mg acetaminophen (TYLENOL) tablet 1,000 mg Given 1,000 mg, Oral, ONCE, 1 dose, Sat03/17/19 at 0945, TOTAL ACETAMINOPHEN DOSE NOT TO EXCEED 4GM DAILY, 03/17/2019 9:58 AM CDT 200 mg celecoxib (CELEBREX) capsule 200 mg Given 200 mg, Oral, ONCE, 1 dose, Sat03/17/19 at 1000, To be given pre-op with a sip of water immediately upon arrival to bay (>30 minutes prior to scheduled surgery time)., Pre-Op 03/17/2019 12:48 PM CDT 5 mg DIAZEPAM 5 MG PO TAB (Cabinet Override) Given NOW, 1 dose, Sat03/17/19 at 1300, Created by cabinet override, Created by cabinet override, diphenhydrAMINE (BENADRYL) injection 12.5 mg 12.5 mg, Intravenous, ONCE PRN, 1 dose, Starting Sat03/17/19 at 1244, Until Sat03/17/19 at 1709, Other..., nausea/vomiting, Third line agent, give if second line agent ineffective., PACU (only) 03/17/2019 11:55 AM CDT 3,000 mL EPINEPHrine PF (ADRENALIN) 3 mg in Given sodium chloride 0.9 % irrigation bag 3,000 mL irrigation 3,000 mL, INTRA-PROCEDURE MED, Starting Sat03/17/19 at 1107, Until Sat03/17/19 at 1231, Intra-op 3,000 mL Given 03/17/2019 11:54 AM CDT 12,000 mL Given 03/17/2019 11:07 AM CDT FENTANYL CITRATE (PF) 50 MCG/ML IJ SOLN (Cabinet Override) NOW, 1 dose, Sat03/17/19 at 1300, Created by cabinet override, Created by cabinet override, fentaNYL citrate PF (SUBLIMAZE) injection 25 mcg 25 mcg, Intravenous, EVERY 5 MIN PRN, Starting Sat03/17/19 at 1244, Until Sat03/17/19 at 1709, Pain Injectable, For Pain Score < 4, Maximum total dose of 200 mcg Hold for RR < 10, PACU (only) 03/17/2019 1:05 PM CDT 50 mcg fentaNYL citrate PF (SUBLIMAZE) Given injection 50 mcg 50 mcg, Intravenous, EVERY 5 MIN PRN, Starting Sat03/17/19 at 1244, Until Sat03/17/19 at 1709, Pain Injectable, For Pain Score 4-6, Maximum total dose 200 mcg Hold if RR < 10, PACU (only) 50 mcg Given 03/17/2019 12:50 PM CDT 03/17/2019 9:51 AM CDT 300 mg gabapentin (NEURONTIN) capsule 300 mg Given 300 mg, Oral, ONCE, 1 dose, Sat03/17/19 at 0945 haloperidol (HALDOL) injection 1 mg 1 mg, Intravenous, ONCE PRN, 1 dose, Starting Sat03/17/19 at 1244, Until Sat03/17/19 at 1709, Other..., Nausea and Vomiting, First line agent. DO NOT ADMINISTER if given intraoperatively, PACU (only) 03/17/2019 1:31 PM CDT 0.5 mg HYDROmorphone injection (DILAUDID) 0.5 Given mg 0.5 mg, Intravenous, EVERY 10 MIN PRN, Starting Sat03/17/19 at 1244, Until Sat03/17/19 at 170, Pain Injectable, For Pain Score 7-10, Maximum total dose of 2 mg Hold for RR <10, PACU (only) 0.5 mg Given 03/17/2019 1:19 PM CDT 03/17/2019 11:58 AM CDT lactated ringers infusion Given - New 1,000 mL, Intravenous, at 20 mL/hr, Bag CONTINUOUS, Starting Sat03/17/19 at 1000, Until Sat03/17/19 at 1709, Pre-Op 20 mL/hr Given - New Bag 03/17/2019 9:45 AM CDT lidocaine PF 1% (10 mg/mL) injection 0.1-2 mL 0.1-2 mL, Injection, NEEDED, Starting Sat03/17/19 at 1044, Until Sat03/17/19 at 1709, Other..., for IV insertion, Pre-Op meperidine injection (DEMEROL) syringe/vial 12.5 mg 12.5 mg, Intravenous, NEEDED, 2 doses, Starting Sat03/17/19 at 1244, Until Sat03/17/19 at 1709, Rigors, May repeat once, PACU (only) metoclopramide (REGLAN) injection 10 mg 10 mg, Intravenous, ONCE PRN, 1 dose, Starting Sat03/17/19 at 1244, Until Sat03/17/19 at 1709, Other..., nausea/vomiting, Second line agent, give if first line agent ineffective. If not given in last six hours., PACU (only) oxyCODONE (ROXICODONE, OXY-IR) tablet 5-10 mg 5-10 mg, Oral, ONCE PRN, 1 dose, Starting Sat03/17/19 at 1244, Until Sat03/17/19 at 1709, Pain PO, For Pain Score <4, PACU (only) 03/17/2019 9:51 AM CDT 1 patch Ear, Behind scopolamine (TRANSDERM-SCOP) patch 1 Patch/Topica patch l Applied 1 patch, Transdermal, Administer over 72 Hours, ONCE, 1 dose, Sat03/17/19 at 1000, Pre-Op SCOPOLAMINE BASE 1 MG OVER 3 DAYS TD PT3D (Cabinet Override) NOW, 1 dose, Sat03/17/19 at 1000, Created by cabinet override, Created by cabinet override, documented in this encounter
--- OUTSIDE RECORDS SUMMARY | 2019-05-21 08:05 | XMS REPORT | Encounter Summary ---
Author Author [facility] Organization [facility] Address Unknown Phone Unavailable Care Team Providers Care Agronomy Specialist Name Role Phone Ventura Gibbs PCP Reason for Visit * Auth/Cert Referred By Contact Referred To Contact Status Reason Specialty Diagnoses / Procedures Diagnoses Femoroacetabular impingement of right hip Acetabular labrum tear, right, subsequent encounter Femoroacetabular impingement of right hip [M25.851] Acetabular labrum tear, right, subsequent encounter [S73.191D] P rocedures DC ARTHROSCOPY HIP W/FEMOROPLASTY DC ARTHROSCOPY HIP W/LABRAL REPAIR ARTHROSCOPY HIP, FEMOROPLASTY ARTHROSCOPY HIP WITH LABRAL REPAIR - SURGICAL Encounter Details Care Team Description Date [place] [address] [place], [place] [id number] 03/17/2019 Anesthesia [facility] [place] [address] [place] [address] Anesthesia Record Responsible Anesthesiologist Anesthesia Start Time Anesthesia Stop Time Procedure Name Roge Flaherty MD 03/17/19 1041 03/17/19 1232 ARTHROSCOPY HIP, FEMOROPLASTY (Right Hip) Date Time Event Comment 939 1040 Out of Pre Procedure 1041 Anes Start 1041 AN Equip Check 1041 In Room 1043 An Start Data 1045 An Induction The patient was reevaluated immediately before moderate or deep sedation use and before anesthesia induction. 1047 An Intubation 1049 Anesthesia Ready 1051 Antibiotic Given 1100 Proc Start 1225 An Extubation 1228 an stop data 1230 Handoff to RN I completed my SBAR handoff to the receiving nurse. 1232 An Stop 1301 Block Placed Meds Name Total midazolam (VERSED) 1 mg/mL injection 2 mg fentaNYL PF (SUBLIMAZE) injection 300 mcg lidocaine (2%) 200 mg/10mL Injection 60 mg syringe propofol (DIPRIVAN) 200 mg/ 20 mL 200 mg injection (VIAL) rocuronium (ZEMURON) injection 50 mg ondansetron (ZOFRAN) injection 4 mg dexamethasone (DECADRON) 4 mg/mL 5 mg injection sugammadex (BRIDION) 100 mg/mL iv soln 200 mg famotidine (PEPCID) injection 20 mg ketamine (KETALAR) 10 mg/mL injection 30 mg dexmedetomide (PRECEDEX) in 0.9% nacl 80 20 mcg mcg/20 mL (4 mcg/mL) ceFAZolin (ANCEF) IVP 2 g 2 g ropivacaine (PF) 0.5% (NAROPIN) 30 mL injection lactated ringers infusion 1,200 mL * Name O2 N2O Inspired Sevoflurane Desflurane Inspired Sevoflurane * No blood administrations on file. Removal Type Details Placement Wounds 03/17/19; 1108; Right; Hip; Surgical 03/17/19 1108 by Sena, (NOT for Incision LEEROY Lan Pressure Injuries) 03/17/19 1445 by Lazaro Bowling RN Peripheral 03/17/19; 0938; RN; L; Hand; 20 G; N/A; 03/17/19 0938 by Dash IV 1; Therapy completed; 03/17/19; 1445 LEEROY Willis 03/17/19 1225 by Donaldo Zelaya CRNA ETT 03/17/19; 1047; Ventilated by mask (1); 03/17/19 1047 by Nathalie Direct laryngoscopy, Stylet; HUGO [place] Single-Lumen, Cuffed; 7.5mm; Mac; 4; Oral; 1-Full view of the glottis; 1 insertion attempt; Auscultation, ETCO2 Detector; 21 centimeters; 03/17/19; 1225 documented in this encounter Social History Date Tobacco Use Types Packs/Day [...] impairment: No documented as of this encounter OR Notes * Anesthesia Postprocedure Evaluation - Roge Flaherty MD - 03/17/2019 3:04 PM CDT Post-Anesthesia Evaluation Name: Sanford Garcia Twroxieg : 1995 Age: 23 y.o. Sex: male Procedure Date: 03/17/2019 Procedure: Procedure(s) with comments: ARTHROSCOPY HIP, FEMOROPLASTY - Traction start: 1100, stop:1137 Total min 37 ARTHROSCOPY HIP WITH LABRAL REPAIR - SURGICAL Surgeon: Surgeon(s): Delano Loera MD Post-Anesthesia Vitals BP: 137/78 (03/17 1400) Temp: 36.7 C (98.1 F) (03/17 1400) Pulse: 72 (03/17 1400) Respirations: 11 PER MINUTE (03/17 1400) SpO2: 99 % (03/17 1400) O2 Delivery: None (Room Air) (05/14 1400) SpO2 Pulse: 71 (03/17 1400) Height: 182.9 cm (72") (03/17 0925) Post Anesthesia Evaluation Note Evaluation location: pre/post Patient participation: recovered; patient participated in evaluation Level of consciousness: alert Pain management: adequate Hydration: normovolemia Temperature: 36.0C - 38.4C Airway patency: adequate Regional/Neuraxial: Single injection shot performed Perioperative Events Perioperative events: no Post-op nausea and vomiting: no PONV Postoperative Status Cardiovascular status: hemodynamically stable Respiratory status: spontaneous ventilation Perioperative Events Perioperative Event: No Emergency Case Activation: No * Anesthesia Procedure Notes - Barry Moran DO - 03/17/2019 1:01 PM CDT Associated Order(s): PERIPHERAL NERVE BLOCK Anesthesia Procedure: Peripheral Nerve Block PERIPHERAL NERVE [...] block, patient sedated but conversant throughout block, p atient tolerated the procedure well with no immediate complications and comforta ble throughout block Additional notes: 30ml 0.5% ropivacaine injected under direct U/S visualization. Refer to nursing documentation for vitals and monitoring data during procedure. Performed by: Barry Moran DO Authorized by: Roge Flaherty MD Associated attestation - Roge Flaherty MD - 03/17/2019 2:45 PM CDT ATTESTATION I was present during the entire procedure performed by a resident Staff name: Roge Flaherty MD Date: 03/17/2019 * Anesthesia Preprocedure Evaluation - Roge Flaherty MD - 03/16/2019 2:12 PM CDT Anesthesia Pre-Procedure Evaluation Name: Sanford Crook : 1995 Age: 23 y.o. Sex: male Procedure Date: 03/17/2019 Procedure: Procedure(s) with comments: ARTHROSCOPY HIP, FEMOROPLASTY - Equipment: [place] [employer] Implants: [place] nanotack. [place] Cinchlock. ARTHROSCOPY HIP WITH LABRAL REPAIR - SURGICAL Physical Assessment Vital Signs (last filed in past 24 hours): Patient History No Known Allergies Current Medications Medication Directions amino acids (BCAA [...] Take 150 mg by mouth twice daily. Review of Systems/Medical History PONV Screening: Non-smoker and Postoperative opioids No history of anesthetic complications No family history of anesthetic complications Pulmonary Not a current smoker No indications/hx of asthma No sleep apnea Cardiovascular - negative Exercise tolerance: >4 METS Beta Vandana therapy: No Beta blockers within 24 hours: n/a No hypertension, No valvular problems/murmurs GI/Hepatic/Renal GERD, well controlled No hx of liver disease No renal disease Neuro/Psych No seizures No CVA Musculoskeletal R femoroacetabular impingement and R acetabular labrum tear Endocrine/Other Obesity Physical Exam Airway Findings Mallampati: I TM distance: >3 FB Neck ROM: full Mouth opening: good Dental Findings: Negative Cardiovascular Findings: Rhythm: regular Rate: normal Pulmonary Findings: Breath sounds clear to auscultation. Diagnostic Tests Hematology: No results found for: HGB, HCT, PLTCT, WBC, NEUT, ANC, LYMPH, ALC, A BSLYMPHCT, BRIAN, AMC, EOSA, ABC, BASOPHILS, MCV, MCH, MCHC, MPV, RDW General Chemistry: No results found for: NA, K, CL, CO2, GAP, BUN, CR, GLU, CA, KETONES, ALBUMIN, LACTIC, OBSCA, MG, TOTBILI, TOTBILCB, PO4 Coagulation: No results found for: PT, PTT, INR Anesthesia Plan ASA score: 1 Plan: general and regional for postoperative pain Induction method: intravenous NPO status: acceptable Informed Consent Anesthetic plan and risks discussed with patient. Plan discussed with: LIFT MECHANIC and surgeon/proceduralist. documented in this encounter Plan of Treatment Not on filedocumented as of this encounter Procedures Comments Procedure Name Priority Date/Time Associated Diagnosis ANESTHESIA PERIPHERAL Routine 03/17/2019 NERVE BLOCK 1:01 PM CDT documented in this encounter Results * PERIPHERAL NERVE BLOCK (03/17/2019 1:01 [...] Moran DO Authorized by: Roge Flaherty MD documented in this encounter Visit Diagnoses Not on filedocumented in this encounter Administered Medications Action Date Dose Rate Site Medication Order MAR Action 03/17/2019 10:51 AM CDT 2 g ceFAZolin (ANCEF) IVP 2 g Given 2 g, Intravenous, ONCE, 1 dose, Sat03/17/19 at 1000, Give Pre-Op < 60 minutes prior to first incision. (Given in OR) IV PUSH -- RECONSTITUTE each 1 g vial by adding 10 mL 0.9% NACL, patients < 120 kg, Pre-Op 03/17/2019 10:51 AM CDT 5 mg dexamethasone (DECADRON) injection Given Intravenous, INTRA-PROCEDURE MED, Starting Sat03/17/19 at 1051, Until Sat03/17/19 at 1245, Anesthesia Intra-op 03/17/2019 12:14 PM CDT 20 mcg dexmedetomidine in 0.9 % NaCl (PRECEDEX) Given injection INTRA-PROCEDURE MED, Starting Sat03/17/19 at 1214, Until Sat03/17/19 at 1245, Anesthesia Intra-op 03/17/2019 10:51 AM CDT 20 mg famotidine (PEPCID) injection Given INTRA-PROCEDURE MED, Starting Sat03/17/19 at 1051, Until Sat03/17/19 at 1245, Anesthesia Intra-op 03/17/2019 12:15 PM CDT 50 mcg fentaNYL citrate PF (SUBLIMAZE) Given injection INTRA-PROCEDURE MED, Starting Sat03/17/19 at 1038, Until Sat03/17/19 at 1245, Anesthesia Intra-op 50 mcg Given 03/17/2019 12:06 PM CDT 50 mcg Given 03/17/2019 11:30 AM CDT 03/17/2019 11:00 AM CDT 30 mg ketamine (KETALAR) injection Given INTRA-PROCEDURE MED, Starting Sat03/17/19 at 1100, Until Sat03/17/19 at 1245, Anesthesia Intra-op 03/17/2019 11:58 AM CDT lactated ringers infusion Given - New 1,000 mL, Intravenous, at 20 mL/hr, Bag CONTINUOUS, Starting Sat03/17/19 at 1000, Until Sat03/17/19 at 1709, Pre-Op 20 mL/hr Given - New Bag 03/17/2019 9:45 AM CDT 03/17/2019 10:45 AM CDT 60 mg lidocaine (PF) injection Given INTRA-PROCEDURE MED, Starting Sat03/17/19 at 1045, Until Sat03/17/19 at 1245, Anesthesia Intra-op 03/17/2019 10:38 AM CDT 2 mg midazolam (VERSED) injection Given Intravenous, INTRA-PROCEDURE MED, Starting Sat03/17/19 at 1038, Until Sat03/17/19 at 1245, Anesthesia Intra-op 03/17/2019 12:06 PM CDT 4 mg ondansetron (ZOFRAN) injection Given Intravenous, INTRA-PROCEDURE MED, Starting Sat03/17/19 at 1206, Until Sat03/17/19 at 1245, Anesthesia Intra-op 03/17/2019 10:45 AM CDT 200 mg propofol (DIPRIVAN) injection Given INTRA-PROCEDURE MED, Starting Sat03/17/19 at 1045, Until Sat03/17/19 at 1245, Anesthesia Intra-op 03/17/2019 10:45 AM CDT 50 mg rocuronium (ZEMURON) injection Given Intravenous, INTRA-PROCEDURE MED, Starting Sat03/17/19 at 1045, Until Sat03/17/19 at 1245, Anesthesia Intra-op 03/17/2019 1:01 PM CDT 30 mL ropivacaine (PF) (NAROPIN) 0.5% (5 Given mg/mL) injection INTRA-PROCEDURE MED, Starting Sat03/17/19 at 1301, Until Sat03/17/19 at 1302, Anesthesia Intra-op 03/17/2019 12:15 PM CDT 200 mg sugammadex (BRIDION) injection Given Intravenous, INTRA-PROCEDURE MED, Starting Sat03/17/19 at 1215, Until Sat03/17/19 at 1245, Anesthesia Intra-op documented in this encounter
--- OUTSIDE RECORDS SUMMARY | 2019-05-21 08:05 | XMS REPORT | Encounter Summary ---
Author Author [facility] Organization [facility] Address Unknown Phone Unavailable Care Team Providers Care Chief Underwriter Name Role Phone Ventura Gibbs PCP Reason for Visit * Auth/Cert Referred By Contact Referred To Contact Status Reason Specialty Diagnoses / Procedures Diagnoses Femoroacetabular impingement of right hip Acetabular labrum tear, right, subsequent encounter Femoroacetabular impingement of right hip [M25.851] Acetabular labrum tear, right, subsequent encounter [S73.191D] P rocedures [place] ARTHROSCOPY HIP W/FEMOROPLASTY [place] ARTHROSCOPY HIP W/LABRAL REPAIR ARTHROSCOPY HIP, FEMOROPLASTY ARTHROSCOPY HIP WITH LABRAL REPAIR - SURGICAL Encounter Details Care Team Description Date [place] [address] [facility] [address] [place] [address] [phone] Femoroacetabular impingement of right hip 03/17/2019 [facility] [place] [address] [place] [address] Social History Date Tobacco Use Types Packs/Day [...] with your prescription medicines or other ove m-ist-kfhbbuf (OTC) medicines. Some prescription medicines have acetaminophen [...] taking the se medicines. Date Last Reviewed: 10/04/201619995284-8532 The [employer]. [address] [place] [address], [place] [address]. All rights reserved. This information is [...] area of the body Date Last Reviewed: 04/04/201619996706-[address] [employer] [place] [address] 7. All rights reserved. This information is not intended as a substitute for pro fessional medical care. Always follow your healthcare professional's instruction s. Using Crutches For helpful videos on using crutches, visit: http://www.Artsicle/c alisa Under Patient Materials, select Crutch Use Education [...] a chair. Use the doorjamb or the [facility] ashboard for support as you lower yourself. [...] use handicapped accessible entrances. Date Last Reviewed: 09/17/201519997929-[address], [place] [address]. All rights res erved. This information is not intended as a substitute for professional medical care. Always follow your healthcare professional's instructions. This informati on has been modified by your health care provider with permission from the department [facility]. * Pre-Anesthesia Patient Instructions* Domi Mckeon RN - 03/06/2019 12:57 PM CDT GENERAL INFORMATION Before you come to the hospital Make arrangements for a responsible adult to drive you home and stay with you for 24 hours following surgery. Bath/Shower Instructions Please refer to Pre-Surgery Shower Instruction sheet. Leave money, credit cards, jewelry, and any other valuables at home. The [facility] is not responsible for the loss or breakage of persona [employer] items. Remove nail yoruba from surgery site/extremity, makeup and all jewelry (inclu ding piercings) before coming to the hospital. The morning of your procedure: brush your teeth and tongue do not smoke do not shave the area where you will have surgery What to bring to the hospital ID/ Insurance Card Lock Master card Official documents for legal guardianship Copy [...] to cancel your procedure Notify us at [place]: if you need to cancel your procedure if you are going to be late Arrival at the [facility] - Your surgery is scheduled on 03/17/19 at 10:15 a.m. Please arrive at 8:15 a.m. The [facility] is located at [address] [place] [address]. This is at the north west corner of [address] Use the main entrance of the [...] for: PT, PTT, INR Delano Loera MD [phone] documented in this encounter Miscellaneous Notes * Operative Report (Direct Entry) - Delano Loera MD - 03/17/2019 11:15 AM CDT PATIENT NAME: Sanford Crook MR#: [id number] DATE OF OPERATION: 03/17/2019 SURGEON: Delano Loera MD GARAGE MANAGER: None PREOPERATIVE DIAGNOSIS: 1. Right hip labral tear. (M16.9) 2. Right hip Femoral acetabular impingement, cam type. (M76.891) POSTOPERATIVE DIAGNOSIS: Same. OPERATIVE PROCEDURE: 1. Right hip arthroscopy 2. Acetabuloplasty with labral repair (CPT 25922) 3. Femoroplasty. (CPT 97655) (59 Modifier) 4. Two views moblie fluoroscopy (CPT code 62611) Table: [place] ANESTHESIA: General endotracheal anesthesia. COMPLICATIONS: None. INDICATIONS FOR OPERATIVE PROCEDURE: The patient is a 23 y.o. male who present ed to clinic with Right sided hip pain. This has been previously worked up for f emoral acetabular impingement and labral tear. He had an MRI, which demonstrate d this. He had exhausted nonoperative treatment options including physical chemistry teacher apy, NSAIDs, activity modification and injections. We [...] and removed followed by a seco nd [place] red 4mm cannula was passed over the nitinol wire. The obturator was r emoved and a [place] blade was inserted through the cannula. The metal cannula wa s then removed and the capsulotomy in the anterior and posterior plane was then performed. The [place] blade was removed. The [place] red 4mm cannula was then p laced into the hip space through midanterior portal. The camera was moved to thi s portal. The [place] blade was then inserted through the anterolateral [...] bony resection was guided by flouroscopic i will. The bony resection was then complete. Next, (4) 2.4 mm holes were drill ed for the Nell CinchLock knotless suture approximately 1 cm apart. [...] result. TAHIR MIGUEL ÁNGEL Performing Organization Address City/State/Zipcode Phone Number [facility] * TELEMETRY STRIPS-SCAN (03/17/2019 12:00 AM CDT) Narrative Performed At Ordered by an unspecified provider. documented in this encounter Visit Diagnoses Diagnosis Tear of right acetabular labrum, subsequent encounter - Primary documented in this encounter Administered Medications Action [...] if second line agent ineffective., PACU (only) FENTANYL CITRATE (PF) 50 MCG/ML IJ SOLN [...] at 1709, Pain Injectable, For Pain Score 7-10, Maximum [...] Sat03/17/19 at 1244, Until Sat03/17/19 at 170, Rigors, May repeat once, PACU (only) metoclopramide [...]
--- OUTSIDE RECORDS SUMMARY | 2019-05-21 08:06 | XMS REPORT | Encounter Summary ---
Author Author [facility] Organization [facility] Address Unknown Phone Unavailable Care Team Providers Care Reinsurance Analyst Name Role Phone ParasVentura mccauley PCP Encounter Details Care Team Description [place] [address] [place] [address] 12/24/2018 [facility] [address] [place], [place] [id number] Social History Date Tobacco Use Types Packs/Day [...] 0 (L-CARNITINE PO) capsule by mouth daily. Multivitamins with Take 1 tablet 0 Fluoride (MULTI-VITAMIN by mouth PO) daily. documented as of this encounter Plan of Treatment Not on filedocumented as of this encounter Procedures Comments Procedure Name Priority Date/Time Associated Diagnosis HIP MIN 4 VIEWS W PELVIS Routine 12/24/2018 Right hip pain RT 10:35 AM DIRECTOR OF EVENT MANAGEMENT documented in this encounter Results * HIP MIN 4 VIEWS W PELVIS RT (12/24/2018 10:35 AM DIRECTOR OF EVENT MANAGEMENT) Specimen Impressions Performed At Findings and Impression: [facility] Interval development of bony fracture recurrence of the right anterior inferior iliac spine, concerning for an avulsion injury involving the rectus femoris insertion point. The bilateral hip joints are preserved. There is flattening of the right femoral head/neck junction which may predispose to cam-type femoral acetabular impingement. 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 The SI joints and pubic symphysis are maintained. No additional fracture identified. Approved by Ned Sheridan M.D. on 12/24/2018 1:08 PM By my electronic signature, I attest that I have personally reviewed the images for this examination and formulated the interpretations and opinions expressed in this report Finalized by Evert Berg M.D. on 12/24/2018 5:21 PM. Dictated by Ned Sheridan M.D. on 12/24/2018 11:21 AM. Narrative Performed At HIP MIN 4 VIEWS W PELVIS RT [facility] Clinical indication: Male, 23 years old. Right hip pain Comparison: External right hip radiograph 07/05/2016 Procedure Note Interface, Radiant Results - 12/24/2018 5:24 PM DIRECTOR OF EVENT MANAGEMENT HIP MIN 4 VIEWS W PELVIS RT Clinical indication: Male, 23 years old. Right hip pain Comparison: External right hip radiograph 07/05/2016 IMPRESSION Findings and Impression: Interval development of bony fracture recurrence of the right anterior inferior iliac spine, concerning for an avulsion injury involving the rectus femoris insertion point. The bilateral hip joints are preserved. There is flattening of the right femoral head/neck junction which may predispose to cam-type femoral acetabular impingement. 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 The SI joints and pubic symphysis are maintained. No additional fracture identified. Approved by Ned Sheridan M.D. on 12/24/2018 1:08 PM By my electronic signature, I attest that I have personally reviewed the images for this examination and formulated the interpretations and opinions expressed in this report Finalized by Evert Berg M.D. on 12/24/2018 5:21 PM. Dictated by Ned Sheridan M.D. on 12/24/2018 11:21 AM. Performing Organization Address City/State/Zipcode Phone Number [facility] documented in this encounter Visit Diagnoses Diagnosis Right hip pain Pain in joint, pelvic region and thigh documented in this encounter
--- OUTSIDE RECORDS SUMMARY | 2019-05-21 08:06 | XMS REPORT | Encounter Summary ---
Author Author [facility] Organization [facility] Address Unknown Phone Unavailable Care Team Providers Care Steam Hoist Operator Name Role Phone Ventura Gibbs PCP Reason for Referral * Radiology Services (Routine) Referred By Contact Referred To Contact Status Reason Specialty Diagnoses / [place] [address] [employer] [address] [place] [address] [facility] [address] [place] [address] No Auth Needed Radiology Diagnoses Right hip pain Acetabular labrum tear, right, subsequent encounter Femoroacetabular impingement of right hip P rocedures FLUORO GUIDED INJ FOR CT/MR HIP RT * Radiology Services (Routine) Referred By Contact Referred To Contact Status Reason Specialty Diagnoses / [place] [address] [employer] [place] [address] [facility] [address] [place] [address] No Auth Needed Radiology Diagnoses Right hip pain Acetabular labrum tear, right, subsequent encounter Femoroacetabular impingement of right hip P rocedures FLUORO GUIDED INJ FOR CT/MR HIP RT Reason for Visit * Radiology Services (Routine) Referred By Contact Referred To Contact Status Reason Specialty Diagnoses / [place] [address] Med Office [address] [place] [address] [facility] [address] [place] [address] No Auth Needed Radiology Diagnoses Right hip pain Acetabular labrum tear, right, subsequent encounter Femoroacetabular impingement of right hip P rocedures FLUORO GUIDED INJ FOR CT/MR HIP RT Encounter Details Care Team Description Date [place] [address] [facility] Med Office [address] [place] [address] [phone] 01/20/2019 [facility] [address] [place] [address] Social History Date Tobacco Use Types Packs/Day [...] Procedure Name Priority Date/Time Associated Diagnosis FLUORO GUIDED INJ FOR Routine 01/20/[address]/MR HIP RT 11:30 AM CDT Acetabular labrum tear, right, subsequent encounter Femoroacetabular impingement of right hip documented in this encounter Results * FLUORO GUIDED INJ FOR CT/MR HIP RT (01/20/2019 11:30 AM CDT) Specimen Impressions Performed At Impression: Successful right hip arthrogram in preparation for MR arthrogram [facility] exam. Finalized by KE ALMEIDA on 01/20/2019 12:05 PM. Dictated by KE ALMEIDA on 01/20/2019 12:01 PM. Narrative Performed At FLUORO GUIDED INJFOR CT/MR HIP RT [facility] Indication: eval for labral tear Comparison: None Technique/findings: The appropriate site along the anterior aspect of the right hip targeting the superior margin of the right femoral head/neck junction was chosen with fluoroscopic guidance. This area was prepped and draped using sterile technique. Superficial and deep infiltration with 1% lidocaine mixed with a small quantity of sodium bicarbonate was injected along the proposed entry site for the arthrogram needle. 9 cc of 1% lidocaine was mixed with 1 cc of sodium bicarbonate for the anesthetic injection mixture. A 22-gauge lumbar puncture needle was advanced with fluoroscopic guidance along the superior margin of the right femoral head neck junction. The tip of the needle was placed in contact with the superior aspect of the femoral head and neck and then positioned along the intra-articular portion of the femoral head neck junction. A small volume of contrast was injected into the right hip to confirm the intra-articular position of the needle tip. 14 cc of a mixture fluid (5.5 cc sodium chloride, 0.1 cc MultiHance, 3.5 cc ropivacaine and 5 cc Isovue-370) was administered into the right hip joint. The injection was performed with fluoroscopic visualization. Contrast flowed freely in the right hip joint space. The spot films show no evidence of a loose intra-articular body within the right hip joint space. The right hip joint space is preserved. The patient was informed that if she develops symptoms or signs of infection at the injection site over the following days or weeks he should contact her physician or this doctor immediately. Procedure Note Interface, Radiant Results - 01/20/2019 12:08 PM CDT FLUORO GUIDED INJ FOR CT/MR HIP RT Indication: eval for labral tear Comparison: None Technique/findings: The appropriate site along the anterior aspect of the right hip targeting the superior margin of the right femoral head/neck junction was chosen with fluoroscopic guidance. This area was prepped and draped using sterile technique. Superficial and deep infiltration with 1% lidocaine mixed with a small quantity of sodium bicarbonate was injected along the proposed entry site for the arthrogram needle. 9 cc of 1% lidocaine was mixed with 1 cc of sodium bicarbonate for the anesthetic injection mixture. A 22-gauge lumbar puncture needle was advanced with fluoroscopic guidance along the superior margin of the right femoral head neck junction. The tip of the needle was placed in contact with the superior aspect of the femoral head and neck and then positioned along the intra-articular portion of the femoral head neck junction. A small volume of contrast was injected into the right hip to confirm the intra-articular position of the needle tip. 14 cc of a mixture fluid (5.5 cc sodium chloride, 0.1 cc MultiHance, 3.5 cc ropivacaine and 5 cc Isovue-370) was administered into the right hip joint. The injection was performed with fluoroscopic visualization. Contrast flowed freely in the right hip joint space. The spot films show no evidence of a loose intra-articular body within the right hip joint space. The right hip joint space is preserved. The patient was informed that if she develops symptoms or signs of infection at the injection site over the following days or weeks he should contact her physician or this doctor immediately. IMPRESSION Impression: Successful right hip arthrogram in preparation for MR arthrogram exam. Finalized by KE ALMEIDA on 01/20/2019 12:05 PM. Dictated by KE ALMEIDA on 01/20/2019 12:01 PM. Performing Organization Address City/State/Zipcode Phone Number [facility] documented in this encounter Visit Diagnoses Diagnosis Right hip pain Pain in joint, pelvic region and thigh Acetabular labrum tear, right, subsequent encounter Femoroacetabular impingement of right hip Enthesopathy of hip region documented in this encounter Administered Medications Action Date Dose Rate Site Medication Order MAR Action 01/20/2019 11:20 AM CDT 0.1 mL gadobenate dimeglumine (MULTIHANCE) Given injection 0.1 mL 0.1 mL, Intra-articular, ONCE, 1 dose, 01/20/19 at 1145, NOTE: This is a HIGH ALERT Medication., 01/20/2019 11:20 AM CDT 5 mL iopamidol 370 (ISOVUE-370) injection 5 Given mL 5 mL, Intra-articular, ONCE, 1 dose, 01/20/19 at 1145, NOTE: This is a HIGH ALERT Medication., 01/20/2019 11:20 AM CDT 8 mL lidocaine 1 % (10mg/mL) injection 8 mL Given 8 mL, Injection, ONCE, 1 dose, 01/20/19 at 1145, To be used for procedures., DO NOT SEND this medication unless it is requested. This med is usually available in floor stock., 01/20/2019 11:20 AM CDT 3.5 mL ropivacaine (PF) (NAROPIN) 0.2% (2 Given mg/mL) injection 3.5 mL 3.5 mL, Injection, ONCE, 1 dose, 01/20/19 at 1145, DO NOT SEND this medication unless it is requested. This med is usually available in floor stock., 01/20/2019 11:20 AM CDT 5.5 mL sodium chloride PF 0.9% injection 5.5 mL Given 5.5 mL, Intra-articular, ONCE, 1 dose, 01/20/19 at 1145, DO NOT SEND this medication unless it is requested. This med is usually available in floor stock., documented in this encounter
--- OUTSIDE RECORDS SUMMARY | 2019-05-21 08:06 | XMS REPORT | Encounter Summary ---
Author Author [facility] Organization [facility] Address Unknown Phone Unavailable Care Team Providers Care Double Surface Operator Name Role Phone Ventura Gibbs PCP Encounter Details Care Team Description [place] [address] Med Office [address]ld [address] [place] [address] [phone] Femoroacetabular impingement of right hip (Primary Dx); Acetabular labrum tear, right, subsequent encounter 02/03/2019 Prep for Case [facility] [address] [place] [address] Social History Date Tobacco Use Types Packs/Day [...] impairment: No documented as of this encounter Plan of Treatment Not on filedocumented as of this encounter Visit Diagnoses Diagnosis Femoroacetabular impingement of right hip - Primary Enthesopathy of hip region Acetabular labrum tear, right, subsequent encounter documented in this encounter
--- OUTSIDE RECORDS SUMMARY | 2019-05-21 08:06 | XMS REPORT | Continuity of Care Document ---
Author Organization Unknown Address Unknown Allergies Active Description Code Type Severity Reaction Onset Reported/Identified Relationship to Patient Clinical Status Yes No Known Drug Allergies [id number] Drug Allergy Unknown N/A 05/11/2019 Medications There is no data. Problems Date Dx Coded Attending Type Code Diagnosis Diagnosed By 09/08/2015 GELKIERSTEN DIXON DO Ot R05 09/08/2015 GELLENDER DOKIERSTEN Ot R53.83 10/14/2015 GELLENDER DOKIERSTEN Ot R05 10/14/2015 GELLENDER DOKIERSTEN Ot R53.83 10/14/2015 Ot 850.9 10/14/2015 Ot E000.8 10/14/2015 Ot E007.6 10/14/2015 Ot E928.9 10/14/2015 Ot 850.9 10/14/2015 Ot E000.8 10/14/2015 Ot E007.6 10/14/2015 Ot E928.9 02/28/2017 GELLENDER DOKIERSTEN Ot R05 COUGH 02/28/2017 GELLENDER DO, KIERSTEN Moran Ot R53.83 OTHER FATIGUE 03/04/2017 GELLENDER DO, KIERSTEN Moran Ot R05 COUGH 03/04/2017 GELLENDER DO, KIERSTEN Moran Ot R53.83 OTHER FATIGUE 03/06/2017 GELLENDER DO, KIERSTEN Moran Ot R05 COUGH 03/06/2017 GELLENDER DO, KIERSTEN Moran Ot R53.83 OTHER FATIGUE 05/11/2019 TRISH VARMA MD Ot Z01.818 ENCOUNTER FOR OTHER PREPROCEDURAL EXAMIN 05/12/2019 TRISH VARMA MD Ot Z01.818 ENCOUNTER FOR OTHER PREPROCEDURAL EXAMIN 05/20/2019 GELLENDER DO, KIERSTEN Moran Ot R05 COUGH 05/20/2019 GELLENDER DO, KIERSTEN Moran Ot R53.83 OTHER FATIGUE Procedures There is no data. Results There is no data. Encounters ACCT No. Visit Date/Time Discharge Status Pt. Type Provider Facility Loc./Unit Complaint [id number] 05/11/2019 05:48:00 05/11/2019 13:08:00 DIS Outpatient TRISH VARMA MD [facility] PREOP CHRONIC TONSILLITIS,TURBINATE HYPERTROPHY [id number] 08/22/2015 11:09:00 08/22/2015 23:59:59 CLS Outpatient KIERSTEN PENDLETON DO [facility] RAD XRAY PA AND LATERAL [id number] 05/21/2019 08:30:00 PEN Preadmit TRISH VARMA MD [facility] CHRONIC TONSILLITIS,TURBINATE HYPERTROPHY [id number] 12/29/2010 09:49:00 Document Registration
--- OUTSIDE RECORDS SUMMARY | 2019-05-21 08:06 | XMS REPORT | Encounter Summary ---
Author Author [facility] Organization [facility] Address Unknown Phone Unavailable Care Team Providers Care Lead Business Analyst Name Role Phone Ventura Gibbs PCP Reason for Referral * Radiology Services (Routine) Referred By Contact Referred To Contact Status Reason Specialty Diagnoses / [place] [address] [employer] [facility] [address] [place] [address] [id number] [place] [address] Closed Radiology Diagnoses Right hip pain Acetabular labrum tear, right, subsequent encounter Femoroacetabular impingement of right hip P rocedures MRI LOWER EXT JNT W CONT RIGHT * Radiology Services (Routine) Referred By Contact Referred To Contact Status Reason Specialty Diagnoses / [place] [address] [address] [employer] [facility] [address] [place] [address] Ic1 Gen Radiology [id number] [place] [address] No Auth Needed Radiology Diagnoses Right hip pain Acetabular labrum tear, right, subsequent encounter Femoroacetabular impingement of right hip P rocedures FLUORO GUIDED INJ FOR CT/MR HIP RT Reason for Visit * Reason Comments Pain Encounter Details Care Team Description [place] [address] [employer] [facility] [address] [place] [address] [phone] Right hip pain (Primary Dx); Acetabular labrum tear, right, subsequent encounter; Femoroacetabular impingement of right hip 12/24/2018 Office Visit [facility] [address] [place] [address] Social History Date Tobacco Use Types Packs/Day [...] Signs Reading Time Taken Comments Vital Sign 126/85 12/24/2018 10:21 AM DYE COLORIST FORMULATOR Blood Pressure 72 12/24/2018 10:21 AM DYE COLORIST FORMULATOR Pulse - - Temperature 16 12/24/2018 10:21 AM DYE COLORIST FORMULATOR Respiratory Rate 98% 12/24/2018 10:21 AM DYE COLORIST FORMULATOR Oxygen Saturation - - Inhaled Oxygen Concentration 104.3 kg (230 lb) 12/24/2018 10:21 AM DYE COLORIST FORMULATOR Weight 182.9 cm (6') 12/24/2018 10:21 AM DYE COLORIST FORMULATOR Height 31.19 12/24/2018 10:21 AM DYE COLORIST FORMULATOR Body Mass Index documented in this encounter [...] this encounter Patient Instructions * Patient Instructions* Kristen Linder RN - 12/24/2018 10:00 AM DYE COLORIST FORMULATOR Please visit the following link to learn more about your diagnosis: [email or web address] If you need to schedule or reschedule your MRI, CT, etc, please call radiology s galina at [phone]. If you choose to go outside of the [facility] to get your MRI done, please call Delano Loera MD's office at [phone] and give location and date of exam to allow us to obtain authori zation from your insurance company. Please know that your insurance company MAY take up to 14 business days to approve your exam. Please do not hesitate to contact my office with any questions. Delano Loera MD | Orthopedic Surgeon, Sports Medicine Chi Aquino PA-C | Physician National Stormwater Leader [facility] | | [phone] [place] [address], [address] | [place] [address] Kristen Linder RN, BSN | Clinical Nurse Coordinator Tonya Brambila MS, LAT, ATC | Clinical Employee Relations Assistant Thank you for supporting our practice! Your feedback helps us deliver the highes t quality care. Review us at: [email or web address] COLORIST FORMULATOR documented in this encounter Progress Notes * Delano Loera MD - 12/24/2018 10:00 AM DYE COLORIST FORMULATOR JUAN PABLOPaveljuan Allison December 24, 2018 CHIEF COMPLAINT: Right hip pain. HISTORY OF PRESENT ILLNESS: 23-year-old male comes to clinic today with his mo m for evaluation of his right hip. He reports that he was a kicker growing up. He reports that in March of 2016 he was going to kick a ball and inadvertently ki cked the ground. He developed anterior hip pain at that time. He was seen by Matt Martinez at [facility] around this time and was diagnosed with a hip f lexor strain. He states that he was able to rehab this after a few weeks and be emilia trying to kick again. He had on and off significantly limiting pain over next several years. He was also eventually treated by Dr. Torre in [facility]. He has tried physical therapy, activity modification, and multiple injectio ns. He had some transient relief from an intraarticular injection per his descr iption which was likely an intraarticular cortisone injection. He has also had PRP injection around either his hip flexor or his quadriceps tendon and recently in the last year underwent bone marrow aspirate stem cell injections in [facility]. Unfortunately, none of the above has led to any relief. He complains of an terior groin pain. He states that he would like to kick recreationally if he co uld, but understands if he cannot moving forward. He localizes all the pain ove r the front of his hip. He denies any posterior pain. He denies any pain radia ting down his leg. He has pain sitting. He and his mom come in today to [facility] further management. PHYSICAL EXAMINATION: Vitals Reviewed, see below. Healthy appearing 23-year-old male in no acute distress. Alert and oriented viky es three. Constitutional: Appropriate mood and affect. Normal responses. IVY NT: Head is atraumatic, normocephalic. Eyes are anicteric, they track normally . Mucous membranes are moist. Neck: Soft and supple. Chest: Normal excursio n, nonlabored breathing. Heart: Palpable pulses distally. Abdomen: Nonobese, nondistended. Skin: Intact. Examination of his right hip demonstrates him to walk without a limp. He mainta ins a level pelvis. His Sweeney forward bend test is negative. He has no low lionel k pain with low back extension with and without rotation. He is nontender to pa lpation over his SI joints. His greater trochanters are nontender to palpation. He has pain with double stance squat. He demonstrates dynamic valgus bilatera lly with single leg squatting bilaterally. The right side also produces pain. Supine exam of his right hip demonstrates 90 of forward flexion, 35 of flexi on external rotation, and 15 of flexion internal rotation. He has pain at the terminal range of straight hip flexion. He also has positive FADIR and Scour t ests. His KARAN test is mildly positive. Stinchfield testing is negative. Spor ts hernia testing is negative. He is tender to palpation over the anterior join t line. He is nontender to palpation over his ASIS nor his pubic symphysis. Hi s lateral hip exam is benign. Straight leg testing is negative. Log roll test is negative. Left hip exam demonstrates 110 of hip flexion, 45 of flexion external rotati on, and 30 of flexion internal rotation. Negative impingement signs x 3. The remainder of his left hip exam is benign. IMAGING: Plain films from July of 2016 are available for review as well as films obtained today. Todays films demonstrate well-maintained joint spaces. The lateral center-edge angle is 31. There is a positive crossover sign, p ositive ischial spine sign. The anterior center-edge angle is 43. The alpha angle is 70. There is a tug lesion at the right ASIS compared to the left. T here is also heterotopic ossification within the anterior hip musculature. Review of his prior x-rays demonstrate no evidence of TUG lesion. Previously ob tained MR arthrogram from November of 2016 is available for review. This demonst rates an anterior and anterior superior labral tear. There is significant intra labral signal change concerning for type 1 and type 2 thalia tearing. No bony ed martine or chondral injury is noted on the prior MRI. IMPRESSION: 23-year-old male with right hip pain secondary to femoroacetabular impingement with significant subspine impingement. PLAN: We discussed his complaints, physical exam, and imaging findings today. We discussed the natural history of femoroacetabular impingement, labral tears, and subspine impingement. He has failed extensive conservative management with physical therapy, intraarticular cortisone injection, soft tissue PRP injection, and bone marrow aspirate stem cell injections. I think that his significant song bspine impingement will not be able to resolve conservatively. I would recommen d surgical management at this time. His surgical procedure would include a righ t hip arthroscopy with acetabuloplasty, femoroplasty, and labral repair versus r econstruction. I think that there is a chance that he may require reconstructio n as an index procedure secondary to the appearance of the MRI from 2016. This will be better evaluated on his updated MRI that we have ordered today. I discu ssed with him that recreational kicking may not be the best activity choice for him going forward and he stated understanding. If he would like to return to re creational kicking, I would like him to wait at least 6-8 months after surgery t o consider doing this and have his hip be asymptomatic. We discussed this at [facility] today and he stated understanding. The risks and benefits of the surgical procedure were discussed with the patient today including but not limited to the risk of bleeding, infection, anesthetic complication, deep vein thrombosis, pul monary embolism, nerve injury, blood vessel injury, stiffness, persistent sympto ms, pain, fracture, need for a revision surgery. We discussed the convalescence and the postoperative rehab. He states understanding the risks and would like to proceed with surgery. We will schedule for a mutually convenient date. All o f their questions were answered today. They were comfortable with the plan at t he end of the visit. SM/abc:pd Delano Loera M.D. I have personally reviewed the patient intake form with the patient today, it wa s scanned into O2. Please see below for details. Review Of Symptoms: A 14-point review of systems was performed and was positive as below and otherwi se negative: Review of Systems Constitutional: Positive for activity change. Musculoskeletal: Positive for arthralgias and myalgias. Allergies: Patient has no known allergies. Current Medications: amino acids (BCAA PO) Take by mouth. APPLE CIDER VINEGAR PO Take by mouth. biotin 1 mg cap Take by mouth. flaxseed oil (OMEGA 3 PO) Take by mouth. levocarnitine (L-CARNITINE PO) Take by mouth. Multivitamins with Fluoride (MULTI-VITAMIN PO) Take by mouth. Past Medical History: Past Medical History: Diagnosis Date Fracture Past Surgical History: History reviewed. No pertinent surgical history. Social History: Social History Tobacco Use Smoking Status Never Smoker Smokeless Tobacco Never Used Social History Substance and Sexual Activity Drug Use No Social History Substance and Sexual Activity Alcohol Use No Frequency: Never Family History: Family History Problem Relation Age of Onset Stroke Father Cancer Maternal Grandmother Vitals: Vitals: 12/24/18 1021 BP: 126/85 Pulse: 72 Resp: 16 SpO2: 98% Weight: 104.3 kg (230 lb) Height: 182.9 cm (72") Body mass index is 31.19 kg/m. ATTESTATION I personally performed the E/M including history, physical exam, and MDM. Staff name: Delano Loera MD Date: 12/25/2018 Delano Loera MD Portions of this noted may have been created using [employer], a [employer] recognition s oftware. Please contact my office for any clarification of documentation. Please send a copy of office notes to the primary care physician and referring sarabjit oconnell. COLORIST FORMULATOR documented in this encounter Plan of Treatment Not on filedocumented as of this encounter Results * MRI LOWER EXT JNT W CONT RIGHT (01/20/2019 1:02 PM CDT) Specimen Right Impressions Performed At 1. Herniation pit along the anterior and neck junction of the right femur with [facility] osseous fullness at the femoral head and neck junction can be seen with CAM GEORGE. Articular cartilage of the hip joint is preserved. 2. Extensive intrasubstance T2 hyperintense signal/intrasubstance tear throughout the superior labrum extending into the superior half of the anterior labrum. Additionally, there is T2 hyperintense fluid signal/tear involving the chondro-labral junction of the superior labrum propagating posteriorly from 12:00 position. However, there is no gadolinium/contrast signal undermining or extending into the labrum in these regions suggestive of subacute to chronic tears with probable areas of healing/fibrosis. 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 At least, some of these findings were present on the prior outside suboptimal MRI arthrogram of 11/13/2016. 3. Small avulsed minimally displaced fragment of the right anterior inferior iliac spine involving the attachment of the rectus femoris with mild edema and thickening of the tendon in this location. These findings were described on the most recent right hip radiograph from 12/24/2018. 4. Fluid cleft within the pubic symphysis involving the midline pubic plate with slight extension laterally (series 2/image 12-14) most suggestive of Athletic pubalgia. These findings were present on the prior MRI exam of 11/13/2016. Findings can be further advanced with dedicated sports hernia protocol MRI exam, if clinically warranted. Finalized by KE ALMEIDA on 01/20/2019 2:42 PM. Dictated by KE ALMEIDA on 01/20/2019 2:12 PM. Narrative Performed At MRI LOWER EXT JNT W CONT RIGHT [facility] Indication: Pain history of right inguinal pain after kicking a football Comparison: MRI arthrogram 11/13/2016, pelvic radiograph from 12/24/2018 Technique: Multiplanar, multisequence MR images of the right hip acquired after performing an arthrogram. Findings: Open view of the pelvis demonstrating normal marrow signal intensity in the lower lumbar spine. Bilateral SI joints are within the normal limits. No bone infarct or suspicious osseous lesions. Small amount of left hip joint fluid without evidence of labral tear. There is fluid left within the pubic symphysis involving the midline pubic plate with slight extension laterally (series 2/image 12-14) most suggestive of Athletic pubalgia. These findings were present on the prior MRI exam of 11/13/2016. This can be further advanced with dedicated sports hernia protocol MRI exam, if clinically warranted. Right hip: Osseous structures are intact without evidence of acute fracture or dislocation. No AVN, suspicious osseous lesions, or bone infarct identified. Herniation pit along the anterior and neck junction of the right femur with osseous fullness at the femoral head and neck junction can be seen with CAM GEORGE. Articular cartilage of the hip joint is preserved. Ligamentum teres is intact. Extensive intrasubstance T2 hyperintense signal/intrasubstance tear throughout the superior labrum extending into the superior half of the anterior labrum (series 7/images 8-20). Additionally, there is T2 hyperintense fluid signal/tear involving the chondro-labral junction of the superior labrum propagating posteriorly from 12:00 position (series 7/imaged 13-16). However, there is no gadolinium/contrast signal undermining or extending into the labrum in these regions suggestive of subacute to chronic tears with probable areas of healing/fibrosis. 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 At least, some of these findings were present on the prior outside suboptimal MRI arthrogram of 11/13/2016. The posterior labrum is intact. Small avulsed minimally displaced fragment of the right anterior inferior iliac spine involving the attachment of the rectus femoris with mild edema and thickening of the tendon in this location. Remaining muscle and tendinous insertions are within the normal limits. Normal course and caliber of the sciatic nerve. No subcutaneous fluid collection or mass lesion. Procedure Note Interface, Radiant Results - 01/20/2019 2:45 PM CDT MRI LOWER EXT JNT W CONT RIGHT Indication: Pain history of right inguinal pain after kicking a football Comparison: MRI arthrogram 11/13/2016, pelvic radiograph from 12/24/2018 Technique: Multiplanar, multisequence MR images of the right hip acquired after performing an arthrogram. Findings: Open view of the pelvis demonstrating normal marrow signal intensity in the lower lumbar spine. Bilateral SI joints are within the normal limits. No bone infarct or suspicious osseous lesions. Small amount of left hip joint fluid without evidence of labral tear. There is fluid left within the pubic symphysis involving the midline pubic plate with slight extension laterally (series 2/image 12-14) most suggestive of Athletic pubalgia. These findings were present on the prior MRI exam of 11/13/2016. This can be further advanced with dedicated sports hernia protocol MRI exam, if clinically warranted. Right hip: Osseous structures are intact without evidence of acute fracture or dislocation. No AVN, suspicious osseous lesions, or bone infarct identified. Herniation pit along the anterior and neck junction of the right femur with osseous fullness at the femoral head and neck junction can be seen with CAM GEORGE. Articular cartilage of the hip joint is preserved. Ligamentum teres is intact. Extensive intrasubstance T2 hyperintense signal/intrasubstance tear throughout the superior labrum extending into the superior half of the anterior labrum (series 7/images 8-20). Additionally, there is T2 hyperintense fluid signal/tear involving the chondro-labral junction of the superior labrum propagating posteriorly from 12:00 position (series 7/imaged 13-16). However, there is no gadolinium/contrast signal undermining or extending into the labrum in these regions suggestive of subacute to chronic tears with probable areas of healing/fibrosis. 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 At least, some of these findings were present on the prior outside suboptimal MRI arthrogram of 11/13/2016. The posterior labrum is intact. Small avulsed minimally displaced fragment of the right anterior inferior iliac spine involving the attachment of the rectus femoris with mild edema and thickening of the tendon in this location. Remaining muscle and tendinous insertions are within the normal limits. Normal course and caliber of the sciatic nerve. No subcutaneous fluid collection or mass lesion. IMPRESSION 1. Herniation pit along the anterior and neck junction of the right femur with osseous fullness at the femoral head and neck junction can be seen with CAM GEORGE. Articular cartilage of the hip joint is preserved. 2. Extensive intrasubstance T2 hyperintense signal/intrasubstance tear throughout the superior labrum extending into the superior half of the anterior labrum. Additionally, there is T2 hyperintense fluid signal/tear involving the chondro- labral junction of the superior labrum propagating posteriorly from 12:00 position. However, there is no gadolinium/contrast signal undermining or extending into the labrum in these regions suggestive of subacute to chronic tears with probable areas of healing/fibrosis. 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 At least, some of these findings were present on the prior outside suboptimal MRI arthrogram of 11/13/2016. 3. Small avulsed minimally displaced fragment of the right anterior inferior iliac spine involving the attachment of the rectus femoris with mild edema and thickening of the tendon in this location. These findings were described on the most recent right hip radiograph from 12/24/2018. 4. Fluid cleft within the pubic symphysis involving the midline pubic plate with slight extension laterally (series 2/image 12-14) most suggestive of Athletic pubalgia. These findings were present on the prior MRI exam of 11/13/2016. Findings can be further advanced with dedicated sports hernia protocol MRI exam, if clinically warranted. Finalized by KE ALMEIDA on 01/20/2019 2:42 PM. Dictated by KE ALMEIDA on 01/20/2019 2:12 PM. Performing Organization Address City/State/Zipcode Phone Number [facility] * FLUORO GUIDED INJ FOR CT/MR HIP [...] encounter Visit Diagnoses Diagnosis Right hip pain - Primary Pain in joint, pelvic region and thigh Acetabular labrum tear, right, subsequent encounter Femoroacetabular impingement of right hip Enthesopathy of hip region documented in this encounter
--- OUTSIDE RECORDS SUMMARY | 2019-05-21 08:06 | XMS REPORT | Encounter Summary ---
Author Author [facility] Organization [facility] Address Unknown Phone Unavailable Care Team Providers Care Shellfish Harvester Name Role Phone Prestonarmando Ventura GRANT PCP Reason for Referral * Radiology Services (Routine) Referred By Contact Referred To Contact Status Reason Specialty Diagnoses / [place] [address] [address] [address] [place] [address] Closed Diagnoses Acetabular labrum tear, right, subsequent encounter Femoroacetabular impingement of right hip Right hip pain Sports hernia, subsequent encounter P rocedures MRI PELVIS WO CONTRAST Reason for Visit * Reason Comments Follow-up Phone Call Encounter Details Care Team Description [place] [address] [facility] [address] [place] [address] [phone] Follow-up Phone Call 02/05/2019 Telephone [facility] [address] [address] [place] [address] Social History Date Tobacco Use Types Packs/Day [...] - Tonya Brambila Athletic Trainer Certified - 02/05/2019 10:11 AM CDT Called patient's listed number, spoke to mother. Dr Loera reviewed Right hip M RI, would like to get MRI of pelvis to evaluate for sports hernia per radiologis t recommendation. Mother states frustration at needing anotehr MRI, explained t hat this is a different MRI of a similar area for findings related to previous M RI, needed to evaluate prior to surgery to know if second surgeon needed to repa ir hernia. Mother states son unable to come to , offered to send orders to [facility] for him. Mother states [facility] in [place], [place]. Called [facility], obtained fax number for orders. MRI order, demos fax ed ([phone]). Pre-cert department notified of desired location of exam. W ill follow up after MRI images and report available. 19 10:19 AM CDT documented in this encounter Plan of Treatment Order Schedule Name Type Priority Associated Diagnoses Expected: 02/05/2019 (Approximate), Expires: 02/06/2020 MRI PELVIS WO CONTRAST Imaging Routine Acetabular labrum tear, right, subsequent encounter Femoroacetabular impingement of right hip Right hip pain Sports hernia, subsequent encounter documented as of this encounter Visit Diagnoses Diagnosis Acetabular labrum tear, right, subsequent encounter - Primary Femoroacetabular impingement of right hip Enthesopathy of hip region Right hip pain Pain in joint, pelvic region and thigh Sports hernia, subsequent encounter documented in this encounter
--- OUTSIDE RECORDS SUMMARY | 2019-05-21 08:06 | XMS REPORT | Encounter Summary ---
Author Author [facility] Organization [facility] Address Unknown Phone Unavailable Care Team Providers Care Personal Care Service Provider Name Role Phone Ventura Gibbs PCP Reason for Referral * Radiology Services (Routine) Referred By Contact Referred To Contact Status Reason Specialty Diagnoses / [place] [address] [facility] [address] [place] [address] I[address] M[address] [address] [place] [address] Closed Radiology Diagnoses Right hip pain Acetabular labrum tear, right, subsequent encounter Femoroacetabular impingement of right hip P rocedures MRI LOWER EXT JNT W CONT RIGHT * Radiology Services (Routine) Referred By Contact Referred To Contact Status Reason Specialty Diagnoses / [place] [address] [facility] [address] [place] [address] I[address] [address] [place] [address] Closed Radiology Diagnoses Right hip pain Acetabular labrum tear, right, subsequent encounter Femoroacetabular impingement of right hip P rocedures MRI LOWER EXT JNT W CONT RIGHT Reason for Visit * Radiology Services (Routine) Referred By Contact Referred To Contact Status Reason Specialty Diagnoses / [place] [address] [facility] [address] [place] [address] [address] [address] [place] [address] Closed Radiology Diagnoses Right hip pain Acetabular labrum tear, right, subsequent encounter Femoroacetabular impingement of right hip P rocedures MRI LOWER EXT JNT W CONT RIGHT Encounter Details Care Team Description Date [place] [address] [facility] Med [address] [place] [address] [phone] 01/20/2019 [facility] [address] [place] [address] Social History Date Tobacco Use Types Packs/Day [...] Procedure Name Priority Date/Time Associated Diagnosis MRI LOWER EXT JNT W CONT Routine 01/20/2019 Right hip pain RIGHT 1:02 PM CDT Acetabular labrum tear, right, subsequent encounter Femoroacetabular impingement of right hip documented in this encounter Results * MRI LOWER EXT [...]
--- OUTSIDE RECORDS SUMMARY | 2019-05-21 08:06 | XMS REPORT ---
Author LYN Lou Organization [employer] Address Unknown Phone Unavailable Care Team Providers Care [employer] Former Name Role Phone LYN VALLES CP Unavailable Allergies, Adverse Reactions, Alerts Substance Reaction Event Type N.K.D.A. Info Not Available Non Drug Allergy Problems Problem Type Condition Code Onset Dates Condition Status Assessment Unprotected sex Z72.51 Active Assessment Screening examination for STD (sexually transmitted disease) Z11.3 Active Medications No Known Medications Procedures Procedure Coding System Code Date No Charge CPT-4 16161 May 23, 2016 VENIPUNCT, ROUTINE* CPT-4 82274 May 23, 2016 Office Visit, New Pt., Level 3 CPT-4 61995 May 23, 2016 Vital Signs Date/Time: May 23, 2016 Cardiac Monitoring Heart Rate 68 bpm Weight 200.6 lbs Height 72 in Blood Pressure Diastolic 90 mmHg Blood Pressure Systolic 128 mmHg Results No Known Results Summary Purpose [employer] Submission
--- OUTSIDE RECORDS SUMMARY | 2019-05-21 08:06 | XMS REPORT | Encounter Summary ---
Author Author [facility] Organization [facility] Address Unknown Phone Unavailable Care Team Providers Care Erp Consultant Name Role Phone Ventura Gibbs PCP Encounter Details Care Team Description [place] [address] [facility] Med Office [address] [place] [address] [phone] Right hip pain (Primary Dx) 12/17/2018 Orders Only [facility] [address] [employer] [address] Social History Date Tobacco Use Types Packs/Day Years Used Never Assessed Sex Assigned at Date Recorded Not on file Industry Job Start Date Occupation Not on file Not on file Not on file Travel End Travel History Travel Start No recent travel history available. documented as of this encounter Plan of Treatment Not on filedocumented as of this encounter Results * HIP MIN 4 VIEWS W PELVIS RT (12/24/2018 10:35 AM [employer]) Specimen Impressions Performed At Findings and Impression: [...] Interface, Radiant Results - 12/24/2018 5:24 PM [employer]PER[employer] HIP MIN 4 VIEWS W PELVIS RT [...]
[2019-05-21 08:22] LABS: BASOPHILS % (AUTO) 1 % (0-10); EOSINOPHILS # (AUTO) 0.1 10^3/uL (0.0-0.3); EOSINOPHILS % (AUTO) 1 % (0-10); HEMATOCRIT 46 % (40-54); HEMOGLOBIN 15.4 G/DL (13.3-17.7); LYMPHOCYTES # (AUTO) 2.2 X 10^3 (1.0-4.0); LYMPHOCYTES % (AUTO) 35 % (12-44); MEAN CORPUSCULAR HEMOGLOBIN 29 PG (25-34); MEAN CORPUSCULAR HGB CONC 34 G/DL (32-36); MEAN CORPUSCULAR VOLUME 86 FL (80-99); MEAN PLATELET VOLUME 10.6 FL (7.4-10.4); MONOCYTES # (AUTO) 0.7 X 10^3 (0.0-1.0); MONOCYTES % (AUTO) 12 % (0-12); NEUTROPHILS # (AUTO) 3.2 X 10^3 (1.8-7.8); NEUTROPHILS % (AUTO) 51 % (42-75); PLATELET COUNT 190 10^3/uL (130-400); RED CELL DISTRIBUTION WIDTH 13.5 % (10.0-14.5); WHITE BLOOD COUNT 6.3 10^3/uL (4.3-11.0)
[2019-05-21] MEDS: LACTATED RINGERS 1,000 ML IV PRN ×2 (08:25→10:14)
--- NOTE | 2019-05-21 08:25 | Progress Note-Pre Operative ---
Pre-Operative Progress Note H&P Reviewed The H&P was reviewed, patient examined and no changes noted. Date Seen by Provider: May 21, 2019 Time Seen by Provider: 08:20 Date H&P Reviewed: May 21, 2019 Time H&P Reviewed: 08:20 Pre-Operative Diagnosis: Dev Septum, Bialt Hyper of Inf Turbs, Rec Tons TRISH VARMA MD May 21, 2019 08:25
[2019-05-21] MEDS ORDERED: MIDAZOLAM 2 MG/2 ML (VERSED) VIAL ONE (08:28)
[2019-05-21] MEDS ORDERED: DEXAMETHASONE 10 MG/ML (DECADRON) 1 ML VIAL ONE (08:28)
[2019-05-21] MEDS ORDERED: proPOfol 200 MG/20 ML (DIPRIVAN) VIAL IV ONE (08:28)
[2019-05-21] MEDS ORDERED: ONDANSETRON 4 MG/2 ML (SDV) Z0FRAN ONE (08:28)
[2019-05-21] MEDS ORDERED: fentaNYL INJECTION 100 MCG/2 ML AMP ONE (08:29)
[2019-05-21 08:40] LABS: BUN/CREATININE RATIO 14; CALCIUM 9.6 MG/DL (8.5-10.1); CARBON DIOXIDE 24 MMOL/L (21-32); CHLORIDE 107 MMOL/L (98-107); CREATININE SERUM 1.03 MG/DL (0.60-1.30); GFR ESTIMATED > 60; GLUCOSE 95 MG/DL (70-105); SODIUM 140 MMOL/L (135-145)
[2019-05-21] MEDS ORDERED: ceFAZolin INJECTION 1,000 MG ONE (09:08)
[2019-05-21] MEDS ORDERED: ceFAZolin INJECTION 1,000 MG VIAL IV ONE (09:15)
[2019-05-21] MEDS ORDERED: COCAINE HCL 4% 2 ML SYR ONE (09:18)
[2019-05-21] MEDS ORDERED: PHENYLEPHRINE 0.5% NASAL SPR (NEO-SYNEPHRINE) REG ONE (09:19)
[2019-05-21] MEDS ORDERED: LIDOCAINE/EPI 1%-1:100,000 (XYLOCAINE) 20ML ONE (09:19)
[2019-05-21] MEDS ORDERED: NEOSTIGMINE 3 MG/3 ML VIAL ONE (09:31)
[2019-05-21] MEDS ORDERED: SEVOFLURANE (ULTANE) 15 ML INHAL SOLN ONE ×2 (09:31→10:10)
[2019-05-21] MEDS ORDERED: GLYCOPYRROLATE 0.2 MG/ML (ROBINUL) 2 ML VIAL ONE (09:31)
[2019-05-21] MEDS ORDERED: ROCURONIUM 10 MG/ML 5 ML SYRINGE IV ONE (10:09)
[2019-05-21] MEDS ORDERED: HYDROcodone/APAP 7.5MG-325 MG/15 ML (LORTAB) UDC PO PRN (10:15)
[2019-05-21] MEDS ORDERED: PROMETHAZINE INJ 25 MG/ML (PHENERGAN) AMP IVP PRN (10:15)
[2019-05-21] MEDS ORDERED: D5 1/2 NS W/KCL 20 MEQ/L 1,000 ML IV SCH (10:15)
[2019-05-21] MEDS ORDERED: ACETAMINOPHEN 325 MG TABLET PO PRN (10:15)
--- NOTE | 2019-05-21 10:15 | Progress Note-Post Operative ---
Post-Operative Progess Note Surgeon (s)/Development Executive (s) Surgeon TRISH VARMA MD Development Executive n/a Pre-Operative Diagnosis Dev Septum, Bialt Hyper of Inf Turbs, Rec Tons Post-Operative Diagnosis same Post-Op Procedure Note Date of Procedure: May 21, 2019 Name of Procedure Performed: Nasal Septoplasty, Bilat REd of INf Turbs, Tonsillectomy Description & Findings Description and Findings: n/a Anesthesia Type get Estimated Blood Loss minimal Packing none. Specimen(s) collected/removed tonsils, nasal septum TRISH VARMA MD May 21, 2019 10:15
[2019-05-21] MEDS ORDERED: HYDROmorphone 2 MG/ML VIAL (DILAUDID) IV ONE (10:45)
[2019-05-21] MEDS ORDERED: ONDANSETRON 4 MG/2 ML (SDV) Z0FRAN IVP PRN (10:45)
[2019-05-21] MEDS ORDERED: morphine INJ 10 MG/ML 1ML (SYR OR VIAL) IVP ONE (10:45)
[2019-05-21] MEDS ORDERED: HYDR118S10 PO (11:52)
[2019-05-21] MEDS ORDERED: DEXAINTSOL PO (11:52)
[2019-05-21] MEDS ORDERED: TETRACAINESUCKERS MT (11:52)
[2019-05-21] MEDS ORDERED: AMOX250S5 PO (11:52)
--- NOTE | 2019-05-21 14:13 | Anesthesia-General Post-Op ---
General Patient Condition Mental Status/LOC: Same as Preop Cardiovascular: Satisfactory Nausea/Vomiting: Absent Respiratory: Satisfactory Pain: Controlled Complications: Absent Post Op Complications Complications None Follow Up Care/Instructions Patient Instructions None needed. Anesthesia/Patient Condition Patient Condition Patient is doing well, no complaints, stable vital signs, no apparent adverse anesthesia problems. No complications reported per nursing. TANA CHATTERJEE CRNA May 21, 2019 14:13
== END 2019-05-21 13:55 | disposition home or self-care (01) ==
LOC: SDC 07:44
PROVIDERS: ATTEND Otolaryngology Otolaryngology/Facial Plastic Surgery
DX: J03.91 Acute recurrent tonsillitis, unspecified (principal); J35.01 Chronic tonsillitis; J34.2 Deviated nasal septum; J34.89 Other specified disorders of nose and nasal sinuses; J34.3 Hypertrophy of nasal turbinates; R09.81 Nasal congestion; Z11.2 Encounter for screening for other bacterial diseases; K21.9 Gastro-esophageal reflux disease without esophagitis; E66.9 Obesity, unspecified; Z68.31 Body mass index [BMI] 31.0-31.9, adult
CPT/HCPCS: 36415; 80048; 85025; 87081

== ENCOUNTER → 2019-10-24 | Outpatient (CLI) | payer BC ==
[~2019-10-24] MED LIST changes: +AMOX250S5 PO; +DEXAINTSOL PO; +HYDR118S10 PO; +TETRACAINESUCKERS MT
[2019-10-24 09:49] LABS: ALANINE AMINOTRANSFERASE 100 U/L (0-55); ALBUMIN 4.2 GM/DL (3.2-4.5); ALKALINE PHOSPHATASE 76 U/L (40-136); BILIRUBIN,DIRECT 0.2 MG/DL (0.0-0.3); BILIRUBIN,INDIRECT 0.3 MG/DL; BILIRUBIN,TOTAL 0.5 MG/DL (0.1-1.0); BUN/CREATININE RATIO 13; CALCIUM 8.7 MG/DL (8.5-10.1); CARBON DIOXIDE 20 MMOL/L (21-32); CHLORIDE 108 MMOL/L (98-107); CREATININE SERUM 1.13 MG/DL (0.60-1.30); GFR ESTIMATED > 60; GLUCOSE 103 MG/DL (70-105); POTASSIUM 4.5 MMOL/L (3.6-5.0); SODIUM 138 MMOL/L (135-145); TOTAL PROTEIN 6.7 GM/DL (6.4-8.2)
== END ==
LOC: LAB 09:13
PROVIDERS: ATTEND Family Medicine
DX: R74.8 Abnormal levels of other serum enzymes (principal)
CPT/HCPCS: 36415; 80048; 80076

== ENCOUNTER → 2019-10-29 | Outpatient (CLI) | payer BC ==
[2019-10-29 21:50] LABS: HEPATITIS C ANTIBODY C Non-Reactive (Non-Reactive)
== END ==
LOC: LAB 14:27
PROVIDERS: ATTEND Family Medicine
DX: Z01.89 Encounter for other specified special examinations (principal)
CPT/HCPCS: 36415; 80074

== ENCOUNTER → 2019-10-30 | Outpatient (CLI) | payer BC ==
--- NOTE | 2019-10-30 08:24 | Diagnostic Imaging Report ---
PROCEDURE: US Hepatic (Liver). TECHNIQUE: Multiple real-time grayscale images were obtained over the right upper quadrant in various projections. INDICATION: Elevated liver function tests. The liver is mildly enlarged at 19.1 cm. No discrete liver mass is identified. The portal vein is patent and demonstrates normal direction of flow. The gallbladder is without stones or sludge. No wall thickening or biliary ductal dilatation is identified. The pancreas was obscured by bowel gas. Aorta is poorly visualized. IVC is patent. Right kidney is without calculi or hydronephrosis. There is no ascites. IMPRESSION: 1. Mild hepatomegaly. 2. No evidence of cholelithiasis or acute cholecystitis. Dictated by: Dictated on workstation # [id number]
== END ==
LOC: RAD 06:47
PROVIDERS: ATTEND Family Medicine
DX: R16.0 Hepatomegaly, not elsewhere classified (principal); R74.8 Abnormal levels of other serum enzymes
CPT/HCPCS: 76705